=== PATIENT | male | born 1980 | race Caucasian/White ===

== ENCOUNTER 2017-10-17 11:44 | Inpatient (IN) | payer BC, OTHER ==
[2017-10-17] MEDS ORDERED: cefOXitin 2 GM in Premix Bag 1 BAG IV ONE (11:50)
[2017-10-17] MEDS ORDERED: metroNIDAZOLE/Normal Saline 500 MG in Premix Bag 1 BAG IV ONE (11:51)
[2017-10-17] MEDS ORDERED: Sodium Chloride 0.9% 10 ML Syringe FLUSH PRN (12:43)
[2017-10-17] MEDS ORDERED: Lidocaine 1%/Sod Bicarbonate in NS 8.4% 1 ML Syringe IV PRN (12:43)
[2017-10-17] MEDS ORDERED: Lactated Ringers 1,000 ML IV SCH (12:45)
--- NOTE | 2017-10-17 12:52 | PCM.PREANE ---
Preanesthetic Assessment - Procedure Proposed Procedure: Laparoscopic Appendectomy - Anesthesia/Transfusion/Family Hx Anesthesia History: Prior Anesthesia Without Reaction Family History of Anesthesia Reaction: No Transfusion History: No Prior Transfusion(s) Intubation History: Unknown - Review of Systems General: No Symptoms Pulmonary: No Symptoms Cardiovascular: No Symptoms Gastrointestinal: Other (Occasional Heart burn) Neurological: No Symptoms Other: Reports: Anxiety - Physical Assessment NPO Status Date: 10/17/17 NPO Status Time: 07:30 (2 bites toast) O2 Sat by Pulse Oximetry: 92 Respiratory Rate: 16 Vital Signs: Last Vital Signs Temp 37.3 C 10/17/17 12:10 Pulse 113 H 10/17/17 12:10 Resp 16 10/17/17 12:10 BP 158/115 H 10/17/17 12:10 Pulse Ox 92 L 10/17/17 12:10 Height: 1.88 m Weight: 133.356 kg ASA Class: 1E Mental Status: Alert & Oriented x3 Airway Class: Mallampati = 2 Dentition: Reports: Normal Dentition Thyro-Mental Finger Breadths: 3 Mouth Opening Finger Breadths: 3 ROM/Head Extension: Full Lungs: Clear to Auscultation, Normal Respiratory Effort Cardiovascular: Regular Rate, Regular Rhythm - Lab Values: Laboratory Last Values WBC 15.70 K/mm3 (4.23-9.07) H 10/17/17 12:15 RBC 4.97 M/mm3 (4.63-6.08) 10/17/17 12:15 Hgb 15.6 gm/L (13.7-17.5) 10/17/17 12:15 Hct 45.4 % (40.1-51.0) 10/17/17 12:15 MCV 91.3 fl (79.0-92.2) 10/17/17 12:15 MCH 31.4 pg (25.7-32.2) 10/17/17 12:15 MCHC 34.4 g/dl (32.2-35.5) 10/17/17 12:15 RDW Std Deviation 43.3 fL (35.1-43.9) 10/17/17 12:15 Plt Count 266 K/mm3 (163-337) 10/17/17 12:15 MPV 10.2 fl (9.4-12.3) 10/17/17 12:15 Neut % (Auto) 79.7 % (34.0-67.9) H 10/17/17 12:15 Lymph % (Auto) 9.3 % (21.8-53.1) L 10/17/17 12:15 [place] % (Auto) 10.2 % (5.3-12.2) 10/17/17 12:15 Eos % (Auto) 0.5 (0.8-7.0) L 10/17/17 12:15 Baso % (Auto) 0.1 % (0.1-1.2) 10/17/17 12:15 Neut # (Auto) 12.51 K/mm3 (1.78-5.38) H 10/17/17 12:15 Lymph # (Auto) 1.46 K/mm3 (1.32-3.57) 10/17/17 12:15 [place] # (Auto) 1.60 K/mm3 (0.30-0.82) H 10/17/17 12:15 Eos # (Auto) 0.08 K/mm3 (0.04-0.54) 10/17/17 12:15 Baso # (Auto) 0.02 K/mm3 (0.01-0.08) 10/17/17 12:15 Urine Color Yellow (Yellow) 10/17/17 11:49 Urine Appearance Clear (Clear) 10/17/17 11:49 Urine pH 6.0 (5.0-8.0) 10/17/17 11:49 Ur Specific [place] 1.010 (1.005-1.030) 10/17/17 11:49 Urine Protein Negative (Negative) 10/17/17 11:49 Urine Glucose (UA) Negative (Negative) 10/17/17 11:49 Urine Ketones Negative (Negative) 10/17/17 11:49 Urine Occult Blood Trace-intact (Negative) H 10/17/17 11:49 Urine Nitrite Negative (Negative) 10/17/17 11:49 Urine Bilirubin Negative (Negative) 10/17/17 11:49 Urine Urobilinogen 0.2 (0.2-1.0) 10/17/17 11:49 Ur Leukocyte Esterase Negative (Negative) 10/17/17 11:49 - Allergies Allergies/Adverse Reactions: Allergies Allergy/AdvReac Type Severity Reaction Status Date / Time No Known Drug Allergies Allergy Other Verified 10/17/17 12:44 - Acknowledgements Anesthesia Type Planned: General Anesthesia Pt an Appropriate Candidate for the Planned Anesthesia: Yes Alternatives and Risks of Anesthesia Discussed w Pt/Guardian: Yes Pt/Guardian Understands and Agrees with Anesthesia Plan: Yes PreAnesthesia Questionnaire HEENT History: Reports: Other (See Below) Other HEENT History: Lymph node cyst Cardiovascular History: Reports: None Respiratory History: Reports: None Other Respiratory History: smoker Gastrointestinal History: Reports: None Genitourinary History: Reports: None Musculoskeletal History: Reports: None Neurological History: Reports: None Psychiatric History: Reports: None Endocrine/Metabolic History: Reports: None Hematologic History: Reports: None Immunologic History: Reports: None Oncologic (Cancer) History: Reports: None Dermatologic History: Reports: None - Past Surgical History Head Surgeries/Procedures: Reports: None HEENT Surgical History: Reports: Other (See Below) Other HEENT Surgeries/Procedures: Removal of cyst on lymph node Cardiovascular Surgical History: Reports: None Respiratory Surgical History: Reports: None GI Surgical History: Reports: None Male Surgical History: Reports: Vasectomy Endocrine Surgical History: Reports: None Neurological Surgical History: Reports: None Musculoskeletal Surgical History: Reports: None Oncologic Surgical History: Reports: None Dermatological Surgical History: Reports: None - SUBSTANCE USE Smoking Status *Q: Former Smoker Tobacco Use Within Last Twelve Months: Cigarettes Other Tobacco Use Within Last Twelve Months: e cig Days Per Week of Alcohol Use: 7 Number of Drinks Per Day: 2 Total Drinks Per Week: 14 Recreational Drug Use History: No - CURRENT (IN HOUSE) MEDS Current Meds: Current Medications Metronidazole 500 mg/ Premix 100 mls @ 100 mls/hr IV ONETIME ONE Stop: 10/17/17 12:50 Lactated Ringer's (Ringers, Lactated) 1,000 mls @ 125 mls/hr IV ASDIRECTED [facility] Lidocaine/Sodium Bicarbonate (Buffered Lidocaine 1% In Ns 8.4%) 0.25 ml IV ONETIME PRN PRN Reason: Prior to IV Start Sodium Chloride (Saline Flush) 10 ml FLUSH ASDIRECTED PRN PRN Reason: Keep Vein Open Discontinued Medications Cefoxitin Sodium 2 gm/ Premix 50 mls @ 100 mls/hr IV ONETIME ONE Stop: 10/17/17 12:19
[2017-10-17] MEDS ORDERED: Famotidine 20 MG/2 ML SDV ONE (12:56)
[2017-10-17] MEDS ORDERED: Metoclopramide 10 MG/2 ML SDV ONE (13:13)
[2017-10-17] MEDS ORDERED: fentaNYL 100 MCG/2 ML SDV ONE (13:13)
[2017-10-17] MEDS ORDERED: Midazolam 1 MG/ML 2 ML SDV ONE (13:14)
[2017-10-17] MEDS ORDERED: Bupivacaine 0.5% 30 ML SDV ONE (13:34)
[2017-10-17] MEDS ORDERED: Lidocaine 1% 4 ML ONE (13:44)
[2017-10-17] MEDS ORDERED: fentaNYL 250 MCG/5 ML SDV ONE (13:44)
[2017-10-17] MEDS ORDERED: Propofol 200 MG/20 ML SDV ONE ×2 (13:44→15:25)
[2017-10-17] MEDS ORDERED: Succinylcholine 200 MG/10 ML MDV ONE (13:44)
[2017-10-17] MEDS ORDERED: Rocuronium 50 MG/5 ML Vial ONE (13:45)
[2017-10-17] MEDS ORDERED: Ondansetron 4 MG/2 ML SDV ONE (14:48)
[2017-10-17] MEDS ORDERED: Lactated Ringers 1,000 ML ONE (14:48)
[2017-10-17] MEDS ORDERED: Dexamethasone 4 MG/ML SDV ONE (14:48)
[2017-10-17] MEDS ORDERED: Midazolam 1 MG/ML 2 ML SDV IVPUSH PRN (14:56)
[2017-10-17] MEDS ORDERED: Haloperidol Lactate 5 MG/ML SDV IVPUSH ONE (14:56)
[2017-10-17] MEDS ORDERED: HYDROmorphone 0.5 MG/0.5 ML Syringe IVPUSH PRN (14:56)
[2017-10-17] MEDS ORDERED: fentaNYL 100 MCG/2 ML SDV IVPUSH PRN (14:56)
[2017-10-17] MEDS ORDERED: Neostigmine Methylsulfate 10 MG/10 ML MDV ONE (15:15)
[2017-10-17] MEDS ORDERED: Ketorolac 30 MG/ML SDV ONE (15:22)
[2017-10-17] MEDS ORDERED: HYDROmorphone 1 MG/ML Syringe ONE (15:24)
--- NOTE | 2017-10-17 15:27 | PCM.OPNOTE ---
- General Post-Op/Procedure Note Date of Surgery/Procedure: 10/17/17 Operative Procedure(s): lap appy Findings: ruptured appendix Pre Op Diagnosis: acute appendicitis Post-Op Diagnosis: Same Anesthesia Technique: General ET Tube Primary Surgeon: Wilbert Dickerson EBL in mLs: 3 Complications: None Condition: Good
[2017-10-17] MEDS ORDERED: Ondansetron 4 MG/2 ML SDV IVPUSH PRN (15:35)
--- NOTE | 2017-10-17 15:44 | PCM.POSTAN ---
POST ANESTHESIA ASSESSMENT - MENTAL STATUS Mental Status: Alert, Oriented - VITAL SIGNS Pulse Rate: 98 SaO2: 96 Resp Rate: 19 Blood Pressure: 165/101 Temperature: 37.0 C - RESPIRATORY Respiratory Status: Respiratory Rate WNL, Airway Patent, O2 Saturation Stable, Supplemental Oxygen - CARDIOVASCULAR CV Status: Pulse Rate WNL, Blood Pressure Stable - GASTROINTESTINAL GI Status: No Symptoms - PAIN Pain Score: 0 - POST OP HYDRATION Hydration Status: Adequate & Stable
[2017-10-17] MEDS: Acetaminophen/HYDROcodone 325-5 MG Tab PO PRN (17:59)
[2017-10-17] MEDS: metroNIDAZOLE/Normal Saline 500 MG in Premix Bag 1 BAG IV SCH (18:00)
[2017-10-17] MEDS: Ketorolac 30 MG/ML SDV IVPUSH PRN (18:22)
[2017-10-17] MEDS: HYDROmorphone 0.5 MG/0.5 ML Syringe IVPUSH PRN ×2 (18:57→21:53)
--- NOTE | 2017-10-17 19:22 | HP ---
DATE OF ADMISSION: 10/17/2017 HISTORY OF PRESENT ILLNESS: This is a 37-year-old who after dinner last night had pain all over the abdomen, vomited his dinner, and he had pain throughout the early hours of today and he began to notice pain in the right lower quadrant. He was seen by Dr. Jackson who noted a pulse of 112 and a temperature of 97 and noted tenderness in the right lower quadrant. A CT scan was done showing appendix in the retrocecal appendix position which was acute, which was read as dilated 13 mm with periappendiceal changes with an appendicolith. The patient was sent over here for care. PAST MEDICAL HISTORY: The patient's past medical history is that of good health. He does have some anxiety and was given some lorazepam because of claustrophobia and because of need for his CT scan. FAMILY HISTORY: Negative, he states. ALLERGIES: None. He did have little penicillin rash in the past. SOCIAL HISTORY: He denies any use of street drugs. He was a former smoker in the past, does use e-cigarettes. REVIEW OF SYSTEMS: No chest pain, shortness of breath, cough, hoarseness, wheezing, fainting, weakness, numbness, or convulsions. PHYSICAL EXAMINATION: GENERAL: Reveals alert, cooperative male. He is overweight with a BMI of 38.5. Pulse is 112, respirations 16, blood pressure 144/100. EYES: Sclerae are white. Extraocular muscle motion normal. Oral cavity: Healthy mucous membrane with mouth and tongue. NECK: Supple. No nodes. No thyromegaly. Trachea midline. LUNGS: Clear. No rales, rhonchi, fremitus, or dullness. HEART: Heart tones are sinus tachycardia. ABDOMEN: Soft, except for tenderness over McBurney point. EXTREMITIES: Upper and lower extremities: No angulation deformities. No sensorineural deficit. PSYCHIATRIC: Normal. He seems calm and cool after the Ativan. NEUROLOGIC: Cranial nerves III through XII intact. ASSESSMENT: Acute appendicitis. PLAN: For laparoscopic appendectomy, antibiotics. Risks and complications discussed with the patient. He understands and consents. MMODAL /[id number]
[2017-10-17] MEDS: cefOXitin 2 GM in Premix Bag 1 BAG IV SCH (21:41)
[2017-10-17] MEDS: Lactated Ringers 1,000 ML IV SCH (21:54)
[2017-10-17] MEDS: LORazepam 0.5 MG Tab PO PRN (21:55)
[2017-10-18] MEDS: HYDROmorphone 0.5 MG/0.5 ML Syringe IVPUSH PRN ×8 (00:21→21:23)
[2017-10-18] MEDS: metroNIDAZOLE/Normal Saline 500 MG in Premix Bag 1 BAG IV SCH ×5 (00:23→23:59)
[2017-10-18] MEDS: cefOXitin 2 GM in Premix Bag 1 BAG IV SCH ×5 (02:03→23:59)
[2017-10-18] MEDS: Ketorolac 30 MG/ML SDV IVPUSH PRN ×2 (04:04→10:06)
[2017-10-18] MEDS: Lactated Ringers 1,000 ML IV SCH (07:55)
--- NOTE | 2017-10-18 08:04 | OR ---
DATE OF OPERATION: 10/17/2017 SURGEON: Wilbert Dickerson MD PREOPERATIVE DIAGNOSIS: Acute appendicitis. POSTOPERATIVE DIAGNOSIS: Acute appendicitis. FINDINGS: Acute appendicitis with ruptured tip of the appendix in retrocecal position secondary to fecaliths. OPERATION PERFORMED: Laparoscopic appendectomy done under general anesthetic. ANESTHESIA: General anesthesia. DESCRIPTION OF PROCEDURE: The patient was taken to the operating room, placed in a supine position, connected to monitoring equipment, given antibiotics and general anesthetic, and intubated. Abdomen was then clipped and prepped with DuraPrep, draped off in a sterile fashion. Incision was made just below the umbilicus, carried down by sharp dissection to the fascia. This was incised. Abdominal cavity entered. Jhoana trocar inserted and secured with stay sutures. Pneumoperitoneum established. A 5 mm 30-degree camera was inserted showing inflammation in the right lower quadrant. A 5-mm trocar was placed in the right lower quadrant, one in right upper quadrant, and the cecum was rotated medially showing an inflamed appendix with ruptured tip and fecaliths in the pericolic gutter. The mesoappendix was then developed with a window using electrocautery at the base of the appendix, and Endo ligator was inserted and the appendix was from its attachments to the cecum. The loose areolar tissue attaching the appendix to the lateral pericolic gutter was then taken down with electrocautery and this allowed tenting up the appendix and dissecting down towards its tip using clips to secure the artery. Once the tip was identified, it was loose from the areolar tissue and the fecaliths were identified. These were removed from the abdominal cavity with a 10 mm sucker wand. Once the fecaliths were secured and out of the way and out of the abdomen, the appendix was placed in an Endo bag and removed. The pneumoperitoneum re-established and the area was then irrigated. There was no reaction in the pelvis as all along in the pericolic gutter up to the subhepatic space and this was irrigated. Excellent hemostasis and this completed the intraabdominal portion. The pneumoperitoneum and ports were removed and the fascia in the subumbilical port was closed with a running 0 Vicryl suture in a horizontal fashion. The skin of each port was closed with subcuticular 4-0 Dexon suture and Steri-Strips and sterile dressing placed, 0.5% Marcaine was infiltrated in the skin of each port. This completed the operation. The patient tolerated the procedure and estimated about 3 or 4 mL of blood loss. ESTIMATED BLOOD LOSS: MMODAL /[id number]
[2017-10-18] MEDS: LORazepam 0.5 MG Tab PO PRN ×2 (09:04→16:23)
[2017-10-18] MEDS ORDERED: Sodium Chloride 0.9% 10 ML Syringe FLUSH PRN (12:36)
--- NOTE | 2017-10-18 12:41 | PCM.SURGPN ---
- General Info Date of Service: 10/18/17 POD#: 1 - Review of Systems Pulmonary: Reports: No Symptoms Cardiovascular: Reports: Other (hypertension is concerned ) Gastrointestinal: Reports: Other (requesting diet) - Patient Data Vitals - Most Recent: Last Vital Signs Temp 98 F 10/18/17 07:22 Pulse 87 10/18/17 07:22 Resp 18 10/18/17 07:22 BP 149/97 H 10/18/17 07:22 Pulse Ox 94 L 10/18/17 07:22 Weight - Most Recent: 136.985 kg I&O - Last 24 Hours: Intake & Output 10/17/17 10/18/17 10/18/17 23:59 07:59 15:59 Intake Total 460 2712 540 Balance 460 2712 540 Lab Results Last 24 Hrs: Laboratory Results - last 24 hr 10/17/17 Range/Units 12:15 Manual Slide Review Abnormal smear Med Orders - Current: Current Medications Hydrocodone Bitart/Acetaminophen ([place] 325-5 Mg) 1 tab PO Q6H PRN PRN Reason: Pain Last Admin: 10/17/17 17:59 Dose: 1 tab Hydromorphone HCl (Dilaudid) 0.5 mg IVPUSH Q2H PRN PRN Reason: Pain Last Admin: 10/18/17 11:23 Dose: 0.5 mg Lactated Ringer's (Ringers, Lactated) 1,000 mls @ 100 mls/hr IV ASDIRECTED [facility] Last Admin: 10/18/17 07:55 Dose: 100 mls/hr Cefoxitin Sodium 2 gm/ Premix 50 mls @ 100 mls/hr IV Q6HR [facility] Last Admin: 10/18/17 11:29 Dose: 100 mls/hr Metronidazole 500 mg/ Premix 100 mls @ 100 mls/hr IV Q6H [facility] Last Admin: 10/18/17 10:00 Dose: 100 mls/hr Ketorolac Tromethamine (Toradol) 30 mg IVPUSH Q6H [facility] Lidocaine/Sodium Bicarbonate (Buffered Lidocaine 1% In Ns 8.4%) 0.25 ml IV ONETIME PRN PRN Reason: Prior to IV Start Lorazepam (Ativan) 0.5 mg PO TID PRN PRN Reason: Anxiety Last Admin: 10/18/17 09:04 Dose: 0.5 mg Ondansetron HCl (Zofran) 4 mg IVPUSH Q8H PRN PRN Reason: Nausea Sodium Chloride (Saline Flush) 10 ml FLUSH ASDIRECTED PRN PRN Reason: Keep Vein Open Sodium Chloride (Saline Flush) 10 ml FLUSH ASDIRECTED PRN PRN Reason: Keep Vein Open Discontinued Medications Bupivacaine HCl (Marcaine 0.5%) Confirm Administered Dose 30 ml .ROUTE .STK-MED ONE Stop: 10/17/17 13:35 Last Admin: 10/17/17 14:45 Dose: 30 ml Dexamethasone (Dexamethasone) Confirm Administered Dose 4 mg .ROUTE .STK-MED ONE Stop: 10/17/17 14:49 Famotidine (Pepcid) Confirm Administered Dose 20 mg .ROUTE .STK-MED ONE Stop: 10/17/17 12:57 Fentanyl (Sublimaze) Confirm Administered Dose 100 mcg .ROUTE .STK-MED ONE Stop: 10/17/17 13:14 Fentanyl (Sublimaze) Confirm Administered Dose 250 mcg .ROUTE .STK-MED ONE Stop: 10/17/17 13:45 Fentanyl (Sublimaze) 50 mcg IVPUSH Q5M PRN PRN Reason: Pain Stop: 10/17/17 18:00 Glycopyrrolate () Confirm Administered Dose 1 mg .ROUTE .STK-MED ONE Stop: 10/17/17 15:16 Haloperidol Lactate (Haldol) 1 mg IVPUSH ONETIME ONE Stop: 10/17/17 14:57 Last Admin: 10/17/17 18:49 Dose: Not Given Hydromorphone HCl (Dilaudid) 0.5 mg IVPUSH Q15M PRN PRN Reason: severe pain Stop: 10/17/17 14:57 Hydromorphone HCl (Dilaudid) Confirm Administered Dose 1 mg .ROUTE .STK-MED ONE Stop: 10/17/17 15:25 Cefoxitin Sodium 2 gm/ Premix 50 mls @ 100 mls/hr IV ONETIME ONE Stop: 10/17/17 12:19 Last Admin: 10/17/17 18:49 Dose: Not Given Metronidazole 500 mg/ Premix 100 mls @ 100 mls/hr IV ONETIME ONE Stop: 10/17/17 12:50 Last Admin: 10/17/17 18:49 Dose: Not Given Lactated Ringer's (Ringers, Lactated) 1,000 mls @ 125 mls/hr IV ASDIRECTED [facility] Lidocaine HCl (Xylocaine-Mpf 1%) Confirm Administered Dose 4 mls @ as directed .ROUTE .STK-MED ONE Stop: 10/17/17 13:45 Lactated Ringer's (Ringers, Lactated) Confirm Administered Dose 1,000 mls @ as directed .ROUTE .STK-MED ONE Stop: 10/17/17 14:49 Ketorolac Tromethamine (Toradol) Confirm Administered Dose 30 mg .ROUTE .STK- MED ONE Stop: 10/17/17 15:23 Ketorolac Tromethamine (Toradol) 30 mg IVPUSH Q6H PRN PRN Reason: Pain Last Admin: 10/18/17 10:06 Dose: 30 mg Metoclopramide HCl (Reglan) Confirm Administered Dose 10 mg .ROUTE .STK-MED ONE Stop: 10/17/17 13:14 Midazolam HCl (Versed 1 Mg/Ml) Confirm Administered Dose 2 mg .ROUTE .STK-MED ONE Stop: 10/17/17 13:15 Midazolam HCl (Versed 1 Mg/Ml) 2 mg IVPUSH ONETIME PRN PRN Reason: Sedation Stop: 10/17/17 18:00 Neostigmine Methylsulfate (Neostigmine Methylsulfate) Confirm Administered Dose 10 mg .ROUTE .STK-MED ONE Stop: 10/17/17 15:16 Ondansetron HCl (Zofran) Confirm Administered Dose 4 mg .ROUTE .STK-MED ONE Stop: 10/17/17 14:49 Propofol (Diprivan 20 Ml) Confirm Administered Dose 400 mg .ROUTE .STK-MED ONE Stop: 10/17/17 13:45 Propofol (Diprivan 20 Ml) Confirm Administered Dose 200 mg .ROUTE .STK-MED ONE Stop: 10/17/17 15:26 Rocuronium [place] (Zemuron) Confirm Administered Dose 50 mg .ROUTE .STK-MED ONE Stop: 10/17/17 13:46 Succinylcholine Chloride (Quelicin) Confirm Administered Dose 200 mg .ROUTE .STK -MED ONE Stop: 10/17/17 13:45 - Exam Wound/Incisions: Healing Well Lungs: Clear to Auscultation, Normal Respiratory Effort GI/Abdominal Exam: Normal Bowel Sounds, Soft, Non-Tender, No Organomegaly, No Distention, No Abnormal Bruit, No Mass, Pelvis Stable, Tender (tenderness rlq) - Problem List Review Problem List Initiated/Reviewed/Updated: Yes - My Orders Last 24 Hours: Active Orders 24 hr Category Date Time Status Patient Status [ADT] Stat ADT 10/17/17 15:27 Active Ambulate [RC] PER UNIT ROUTINE Care 10/17/17 15:29 Active Antiembolic Devices [RC] BID Care 10/17/17 15:29 Active Communication Order [RC] ROUTINE Care 10/17/17 14:55 Active Cooling Warming Measures [RC] ASDIRECTED Care 10/17/17 14:55 Active Notify Provider Consults [RC] ASDIRECTED Care 10/18/17 12:36 Ordered Notify Provider [RC] ASDIRECTED Care 10/17/17 14:55 Active Pulse Oximetry [RC] ASDIRECTED Care 10/17/17 14:55 Active Turn, Cough, Deep Breathe [RC] .PRN Care 10/17/17 15:29 Active Consult to Physician [CONS] Routine Cons 10/18/17 12:34 Ordered Clear Liquid Diet [DIET] Diet 10/17/17 Dinner Active Regular Diet [DIET] Diet 10/18/17 Dinner Ordered Acetaminophen/HYDROcodone [[place] 325-5 MG] Med 10/17/17 15:31 Active 1 tab PO Q6H PRN HYDROmorphone [Dilaudid] Med 10/17/17 15:29 Active 0.5 mg IVPUSH Q2H PRN Ketorolac [Toradol] Med 10/18/17 12:45 Ordered 30 mg IVPUSH Q6H LORazepam [Ativan] Med 10/17/17 20:44 Active 0.5 mg PO TID PRN Lactated Ringers [Ringers, Lactated] 1,000 ml Med 10/17/17 15:30 Active IV ASDIRECTED Lidocaine 1%/Sod Bicarbonate [Buffered Lidocaine 1% in Med 10/17/17 12:43 Active NS 8.4%] 0.25 ml IV ONETIME PRN Ondansetron [Zofran] Med 10/17/17 15:35 Active 4 mg IVPUSH Q8H PRN Sodium Chloride 0.9% [Saline Flush] Med 10/17/17 12:43 Active 10 ml FLUSH ASDIRECTED PRN Sodium Chloride 0.9% [Saline Flush] Med 10/18/17 12:36 Ordered 10 ml FLUSH ASDIRECTED PRN cefOXitin [Mefoxin in Dextrose,Iso-Osm 2 GM/50 ML] 2 gm Med 10/17/17 18:00 Active Premix Bag 1 bag IV Q6HR metroNIDAZOLE/Normal Saline [Flagyl 500 MG in NS 100 ML Med 10/17/17 17:00 Active ] 500 mg Premix Bag 1 bag IV Q6H Convert IV to Saline Lock [OM.PC] Routine Oth 10/18/17 12:36 Ordered Medication Administration Instruction [OM.PC] Routine Oth 10/17/17 12:43 Ordered Peripheral IV Insertion Adult [OM.PC] Routine Oth 10/17/17 12:43 Ordered SCD [Sequential Compression Device] [OM.PC] Routine Oth 10/17/17 15:29 Ordered Schedule Procedure [COMM] Urgent Oth 10/17/17 11:49 Ordered Resuscitation Status Routine Resus Stat 10/17/17 17:55 Ordered Medication Orders Hydrocodone Bitart/Acetaminophen ([place] 325-5 Mg) 1 tab PO Q6H PRN PRN Reason: Pain Last Admin: 10/17/17 17:59 Dose: 1 tab Hydromorphone HCl (Dilaudid) 0.5 mg IVPUSH Q2H PRN PRN Reason: Pain Last Admin: 10/18/17 11:23 Dose: 0.5 mg Admin: 10/18/17 08:54 Dose: 0.5 mg Admin: 10/18/17 06:52 Dose: 0.5 mg Admin: 10/18/17 04:26 Dose: 0.5 mg Admin: 10/18/17 00:21 Dose: 0.5 mg Admin: 10/17/17 21:53 Dose: 0.5 mg Admin: 10/17/17 18:57 Dose: 0.5 mg Lactated Ringer's (Ringers, Lactated) 1,000 mls @ 100 mls/hr IV ASDIRECTED [facility] Last Admin: 10/18/17 07:55 Dose: 100 mls/hr Infusion: 10/18/17 07:54 Dose: 100 mls/hr Admin: 10/17/17 21:54 Dose: 100 mls/hr Cefoxitin Sodium 2 gm/ Premix 50 mls @ 100 mls/hr IV Q6HR [facility] Last Admin: 10/18/17 11:29 Dose: 100 mls/hr Infusion: 10/18/17 06:58 Dose: 100 mls/hr Admin: 10/18/17 06:28 Dose: 100 mls/hr Infusion: 10/18/17 02:33 Dose: 100 mls/hr Admin: 10/18/17 02:03 Dose: 100 mls/hr Infusion: 10/17/17 22:11 Dose: 100 mls/hr Admin: 10/17/17 21:41 Dose: 100 mls/hr Metronidazole 500 mg/ Premix 100 mls @ 100 mls/hr IV Q6H [facility] Last Admin: 10/18/17 10:00 Dose: 100 mls/hr Infusion: 10/18/17 05:03 Dose: 100 mls/hr Admin: 10/18/17 04:03 Dose: 100 mls/hr Infusion: 10/18/17 01:23 Dose: 100 mls/hr Admin: 10/18/17 00:23 Dose: 100 mls/hr Infusion: 10/17/17 19:00 Dose: 100 mls/hr Admin: 10/17/17 18:00 Dose: 100 mls/hr Ketorolac Tromethamine (Toradol) 30 mg IVPUSH Q6H [facility] Lidocaine/Sodium Bicarbonate (Buffered Lidocaine 1% In Ns 8.4%) 0.25 ml IV ONETIME PRN PRN Reason: Prior to IV Start Lorazepam (Ativan) 0.5 mg PO TID PRN PRN Reason: Anxiety Last Admin: 10/18/17 09:04 Dose: 0.5 mg Admin: 10/17/17 21:55 Dose: 0.5 mg Ondansetron HCl (Zofran) 4 mg IVPUSH Q8H PRN PRN Reason: Nausea Sodium Chloride (Saline Flush) 10 ml FLUSH ASDIRECTED PRN PRN Reason: Keep Vein Open Sodium Chloride (Saline Flush) 10 ml FLUSH ASDIRECTED PRN PRN Reason: Keep Vein Open - Plan Plan (Free Text/Narrative):: pain a problem for the patient family concerned about hs high blood pressure and wishes this addressed diet wishes the diet advanced \ ass improvaing plan advance diet stop LR, consult for hypertenision with the hospitalist and give toradol maykel q six hour schedule JACKI
[2017-10-18] MEDS ORDERED: Ketorolac 30 MG/ML SDV IVPUSH SCH (12:45)
[2017-10-18] MEDS ORDERED: hydrALAZINE 20 MG/ML SDV IVPUSH PRN (13:03)
--- NOTE | 2017-10-18 13:14 | PCM.CONS ---
H&P History of Present Illness - General Date of Service: 10/18/17 Admit Problem/Dx: Admission Diagnosis/Problem Admission Diagnosis/Problem Appendicitis Source of Information: Patient History Limitations: Reports: No Limitations - History of Present Illness Initial Comments - Free Text/Narative: This pt is 37 y/o c male with no PMHX, presented to ER with c/o abd pain was found to have appendicitis and went to OR for laproscopic Appendectomy. Pt had small perforation in tip of appendix but it was resected By Dr Ledbetter. Pt been having a lot of abd pain but passed flatus and start on clears today. We been consult for elevated BP since admit, pt denies ny Hx of HTN, only his broher had a HTN. pt is not complaint with his diet and his overweight. Right Abdomen Pain Score (Numeric/FACES): 8 - Related Data Allergies/Adverse Reactions: Allergies Allergy/AdvReac Type Severity Reaction Status Date / Time No Known Drug Allergies Allergy Other Verified 10/17/17 12:44 Past Medical History HEENT History: Reports: Other (See Below) Other HEENT History: Lymph node cyst Cardiovascular History: Reports: None Respiratory History: Reports: None Other Respiratory History: smoker Gastrointestinal History: Reports: None Genitourinary History: Reports: None Musculoskeletal History: Reports: None Neurological History: Reports: None Psychiatric History: Reports: None Endocrine/Metabolic History: Reports: None Hematologic History: Reports: None Immunologic History: Reports: None Oncologic (Cancer) History: Reports: None Dermatologic History: Reports: None - Past Surgical History Head Surgeries/Procedures: Reports: None HEENT Surgical History: Reports: Other (See Below) Other HEENT Surgeries/Procedures: Removal of cyst on lymph node Cardiovascular Surgical History: Reports: None Respiratory Surgical History: Reports: None GI Surgical History: Reports: None Male Surgical History: Reports: Vasectomy Endocrine Surgical History: Reports: None Neurological Surgical History: Reports: None Musculoskeletal Surgical History: Reports: None Oncologic Surgical History: Reports: None Dermatological Surgical History: Reports: None Social & Family History - Tobacco Use Smoking Status *Q: Former Smoker Years of Tobacco use: 15 Packs/Tins Daily: 1.5 Used Tobacco, but Quit: Yes Month Tobacco Last Used: 11/2011 Second Hand Smoke Exposure: No - Caffeine Use Caffeine Use: Reports: Coffee, Soda Other Caffeine Use: couple/day - Alcohol Use Days Per Week of Alcohol Use: 7 Number of Drinks Per Day: 3 Total Drinks Per Week: 21 - Recreational Drug Use Recreational Drug Use: No Drug Use in Last 12 Months: No H&P Review of Systems - Review of Systems: Review Of Systems: See Below General: Reports: No Symptoms HEENT: Reports: No Symptoms Pulmonary: Reports: No Symptoms Cardiovascular: Reports: No Symptoms Gastrointestinal: Reports: No Symptoms Genitourinary: Reports: No Symptoms Musculoskeletal: Reports: No Symptoms Skin: Reports: No Symptoms Psychiatric: Reports: No Symptoms Neurological: Reports: No Symptoms Hematologic/Lymphatic: Reports: No Symptoms Immunologic: Reports: No Symptoms Exam - Exam Exam: See Below - Vital Signs Vital Signs: Last Vital Signs Temp 100.0 F 10/18/17 12:27 Pulse 107 H 10/18/17 12:28 Resp 16 10/18/17 12:27 BP 161/108 H 10/18/17 12:28 Pulse Ox 94 L 10/18/17 12:28 Weight: 302 lb - Exam General: Alert, Oriented, 4 HEENT: PERRLA, Hearing Intact, Mucosa Moist & [place], Nares Patent, Normal Nasal Septum, Posterior Pharynx Clear, Conjunctiva Clear, EOMI, EACs Clear, TMs Clear Neck: Supple, Trachea Midline, 2 Lungs: Clear to Auscultation, Normal Respiratory Effort Cardiovascular: Regular Rate, Regular Rhythm GI/Abdominal Exam: Normal Bowel Sounds, Soft, No Organomegaly, No Distention, No Abnormal Bruit, No Mass, Pelvis Stable, Tender (Male) Exam: Deferred Rectal (Males) Exam: Deferred Back Exam: Normal Inspection, Full Range of Motion, NT Extremities: Normal Inspection, Normal Range of Motion, Non-Tender, No Pedal Edema, Normal Capillary Refill Skin: Warm, Dry, Intact Neurological: Cranial Nerves Intact, Reflexes Equal Bilateral Neuro Extensive - Mental Status: Alert, Oriented x3, Normal Mood/Affect, Normal Cognition Neuro Extensive - Motor, Sensory, Reflexes: CN II-XII Intact, Normal Gait, Normal Reflexes Psychiatric: Alert, Normal Affect, Normal Mood - Patient Data Result Diagrams: 10/17/17 12:15 Consult PN Assessment/Plan POD#: 1 Procedures: Procedures CHEST X-RAY 2VW FRONTAL&LATL (08/05/15) COMPLETE CBC W/AUTO DIFF WBC (08/05/15) COMPREHEN METABOLIC PANEL (08/05/15) HIV-1/HIV-2 1 RESULT ANTBDY (08/05/15) RBC SED RATE AUTOMATED (08/05/15) Problem List Initiated/Reviewed/Updated: Yes My Orders Last 24 Hours: My Active Orders 10/18/17 13:03 hydrALAZINE [Apresoline] 10 mg IVPUSH Q4H PRN 10/18/17 13:15 Hydrochlorothiazide 25 mg PO DAILY Lisinopril [Prinivil] 10 mg PO DAILY Plan: ELEVATED BP 2/2 PAIN CONTROL VS UNDERLYING ESS HTN (WHICH MOST LIKELY THE REASON ) POD #1 LAP APPENDECTOMY PLAN: -ITS VERY REASONABLE TO START PT ON HTN med LIKE ACEI/HCTZ AND BE REEVAL OPT BASIS WITH HIS PCP IN 1 WEEK TO 10 DAYS -IN MEAN TIME WILL ADD HYDRALYZIN PRN IP -PT GOT EDUCATION RE LOW SALT DIET -WILL F/U ON HIS BP ON AM Thank you for allowing us to see your patient. Requesting Provider: barrett Date Consult Requested: 10/18/17 Reason for Consult: HTN Patient History Reviewed: Yes Admission H&P Reviewed: Yes Notified Requestor: Yes
[2017-10-18] MEDS: Lisinopril 10 MG Tab PO SCH (13:15)
[2017-10-18] MEDS: Hydrochlorothiazide 25 MG Tab PO SCH (13:15)
[2017-10-18] MEDS: Acetaminophen/HYDROcodone 325-5 MG Tab PO PRN (14:50)
[2017-10-18] MEDS: Ketorolac 30 MG/ML SDV IVPUSH SCH ×2 (16:27→21:22)
[2017-10-18] MEDS: Acetaminophen/oxyCODONE 325-5 MG Tab PO PRN (17:27)
[2017-10-18] MEDS ORDERED: Metoprolol Tartrate 5 MG/5 ML SDV IVPUSH PRN (18:45)
--- NOTE | 2017-10-18 19:12 | PCM.SURGPN ---
- General Info Date of Service: 10/18/17 POD#: 1 Functional Status: Reports: Pain Controlled - Review of Systems General: Reports: Other (tachycardia of 131) - Patient Data Vitals - Most Recent: Last Vital Signs Temp 100.0 F 10/18/17 12:27 Pulse 131 H 10/18/17 18:15 Resp 20 10/18/17 18:15 BP 130/99 H 10/18/17 18:15 Pulse Ox 90 L 10/18/17 18:15 Weight - Most Recent: 136.985 kg I&O - Last 24 Hours: Intake & Output 10/18/17 10/18/17 10/18/17 07:59 15:59 23:59 Intake Total 5592 540 3940 Balance 0932 540 3940 Med Orders - Current: Current Medications Hydrocodone Bitart/Acetaminophen ([place] 325-5 Mg) 1 tab PO Q6H PRN PRN Reason: Pain Last Admin: 10/18/17 14:50 Dose: 1 tab Hydralazine HCl (Apresoline) 10 mg IVPUSH Q4H PRN PRN Reason: Hypertension Last Admin: 10/18/17 15:00 Dose: 10 mg Hydrochlorothiazide (Hydrochlorothiazide) 25 mg PO DAILY [facility] Last Admin: 10/18/17 13:15 Dose: 25 mg Hydromorphone HCl (Dilaudid) 0.5 mg IVPUSH Q2H PRN PRN Reason: Pain Last Admin: 10/18/17 14:51 Dose: 0.5 mg Cefoxitin Sodium 2 gm/ Premix 50 mls @ 100 mls/hr IV Q6HR [facility] Last Admin: 10/18/17 17:42 Dose: 100 mls/hr Metronidazole 500 mg/ Premix 100 mls @ 100 mls/hr IV Q6H [facility] Last Admin: 10/18/17 16:24 Dose: 100 mls/hr Ketorolac Tromethamine (Toradol) 30 mg IVPUSH Q6H [facility] Last Admin: 10/18/17 16:27 Dose: 30 mg Lidocaine/Sodium Bicarbonate (Buffered Lidocaine 1% In Ns 8.4%) 0.25 ml IV ONETIME PRN PRN Reason: Prior to IV Start Lisinopril (Prinivil) 10 mg PO DAILY [facility] Last Admin: 10/18/17 13:15 Dose: 10 mg Lorazepam (Ativan) 0.5 mg PO TID PRN PRN Reason: Anxiety Last Admin: 10/18/17 16:23 Dose: 0.5 mg Metoprolol Tartrate (Lopressor) 5 mg IVPUSH Q4H PRN PRN Reason: Tachycardia Ondansetron HCl (Zofran) 4 mg IVPUSH Q8H PRN PRN Reason: Nausea Oxycodone/Acetaminophen (Percocet 325-5 Mg) 1 - 2 tab PO Q6H PRN PRN Reason: Abdominal Pain Last Admin: 10/18/17 17:27 Dose: 2 tab Sodium Chloride (Saline Flush) 10 ml FLUSH ASDIRECTED PRN PRN Reason: Keep Vein Open Sodium Chloride (Saline Flush) 10 ml FLUSH ASDIRECTED PRN PRN Reason: Keep Vein Open Discontinued Medications Bupivacaine HCl (Marcaine 0.5%) Confirm Administered Dose 30 ml .ROUTE .STK-MED ONE Stop: 10/17/17 13:35 Last Admin: 10/17/17 14:45 Dose: 30 ml Dexamethasone (Dexamethasone) Confirm Administered Dose 4 mg .ROUTE .STK-MED ONE Stop: 10/17/17 14:49 Famotidine (Pepcid) Confirm Administered Dose 20 mg .ROUTE .STK-MED ONE Stop: 10/17/17 12:57 Fentanyl (Sublimaze) Confirm Administered Dose 100 mcg .ROUTE .STK-MED ONE Stop: 10/17/17 13:14 Fentanyl (Sublimaze) Confirm Administered Dose 250 mcg .ROUTE .STK-MED ONE Stop: 10/17/17 13:45 Fentanyl (Sublimaze) 50 mcg IVPUSH Q5M PRN PRN Reason: Pain Stop: 10/17/17 18:00 Glycopyrrolate () Confirm Administered Dose 1 mg .ROUTE .STK-MED ONE Stop: 10/17/17 15:16 Haloperidol Lactate (Haldol) 1 mg IVPUSH ONETIME ONE Stop: 10/17/17 14:57 Last Admin: 10/17/17 18:49 Dose: Not Given Hydromorphone HCl (Dilaudid) 0.5 mg IVPUSH Q15M PRN PRN Reason: severe pain Stop: 10/17/17 14:57 Hydromorphone HCl (Dilaudid) Confirm Administered Dose 1 mg .ROUTE .STK-MED ONE Stop: 10/17/17 15:25 Cefoxitin Sodium 2 gm/ Premix 50 mls @ 100 mls/hr IV ONETIME ONE Stop: 10/17/17 12:19 Last Admin: 10/17/17 18:49 Dose: Not Given Metronidazole 500 mg/ Premix 100 mls @ 100 mls/hr IV ONETIME ONE Stop: 10/17/17 12:50 Last Admin: 10/17/17 18:49 Dose: Not Given Lactated Ringer's (Ringers, Lactated) 1,000 mls @ 125 mls/hr IV ASDIRECTED [facility] Lidocaine HCl (Xylocaine-Mpf 1%) Confirm Administered Dose 4 mls @ as directed .ROUTE .STK-MED ONE Stop: 10/17/17 13:45 Lactated Ringer's (Ringers, Lactated) Confirm Administered Dose 1,000 mls @ as directed .ROUTE .STK-MED ONE Stop: 10/17/17 14:49 Lactated Ringer's (Ringers, Lactated) 1,000 mls @ 100 mls/hr IV ASDIRECTED [facility] Last Admin: 10/18/17 07:55 Dose: 100 mls/hr Ketorolac Tromethamine (Toradol) Confirm Administered Dose 30 mg .ROUTE .STK- MED ONE Stop: 10/17/17 15:23 Ketorolac Tromethamine (Toradol) 30 mg IVPUSH Q6H PRN PRN Reason: Pain Last Admin: 10/18/17 10:06 Dose: 30 mg Ketorolac Tromethamine (Toradol) 30 mg IVPUSH Q6H [facility] Last Admin: 10/18/17 16:23 Dose: Not Given Metoclopramide HCl (Reglan) Confirm Administered Dose 10 mg .ROUTE .STK-MED ONE Stop: 10/17/17 13:14 Midazolam HCl (Versed 1 Mg/Ml) Confirm Administered Dose 2 mg .ROUTE .STK-MED ONE Stop: 10/17/17 13:15 Midazolam HCl (Versed 1 Mg/Ml) 2 mg IVPUSH ONETIME PRN PRN Reason: Sedation Stop: 10/17/17 18:00 Neostigmine Methylsulfate (Neostigmine Methylsulfate) Confirm Administered Dose 10 mg .ROUTE .STK-MED ONE Stop: 10/17/17 15:16 Ondansetron HCl (Zofran) Confirm Administered Dose 4 mg .ROUTE .STK-MED ONE Stop: 10/17/17 14:49 Propofol (Diprivan 20 Ml) Confirm Administered Dose 400 mg .ROUTE .STK-MED ONE Stop: 10/17/17 13:45 Propofol (Diprivan 20 Ml) Confirm Administered Dose 200 mg .ROUTE .STK-MED ONE Stop: 10/17/17 15:26 Rocuronium Reeder (Zemuron) Confirm Administered Dose 50 mg .ROUTE .STK-MED ONE Stop: 10/17/17 13:46 Succinylcholine Chloride (Quelicin) Confirm Administered Dose 200 mg .ROUTE .STK -MED ONE Stop: 10/17/17 13:45 - Exam Lungs: Clear to Auscultation, Normal Respiratory Effort GI/Abdominal Exam: Normal Bowel Sounds, Soft, Non-Tender, No Organomegaly, No Distention, No Abnormal Bruit, No Mass, Pelvis Stable, Other (tenderness in the RLQ unchanged mabey better rest of the abdomen is soft and surgical site are healing without problem. minimal guarding in the RLQ consitant with recent surgery ) - Problem List Review Problem List Initiated/Reviewed/Updated: Yes - My Orders Last 24 Hours: Active Orders 24 hr Category Date Time Status EKG 12 Lead [EKG Documentation Completion] [RC] STAT Care 10/18/17 19:07 Active Notify Provider Consults [RC] ASDIRECTED Care 10/18/17 12:36 Active Consult to Physician [CONS] Routine Cons 10/18/17 12:34 Active Regular Diet [DIET] Diet 10/18/17 Dinner Active CBC WITH AUTO DIFF [HEME] Routine Lab 10/19/17 07:00 Ordered Acetaminophen/oxyCODONE [Percocet 325-5 MG] Med 10/18/17 16:33 Active 1 - 2 tab PO Q6H PRN Hydrochlorothiazide Med 10/18/17 13:15 Active 25 mg PO DAILY Ketorolac [Toradol] Med 10/18/17 16:00 Active 30 mg IVPUSH Q6H LORazepam [Ativan] Med 10/17/17 20:44 Active 0.5 mg PO TID PRN Lisinopril [Prinivil] Med 10/18/17 13:15 Active 10 mg PO DAILY Metoprolol Tartrate [Lopressor] Med 10/18/17 18:45 Active 5 mg IVPUSH Q4H PRN Sodium Chloride 0.9% [Saline Flush] Med 10/18/17 12:36 Active 10 ml FLUSH ASDIRECTED PRN hydrALAZINE [Apresoline] Med 10/18/17 13:03 Active 10 mg IVPUSH Q4H PRN Convert IV to Saline Lock [OM.PC] Routine Oth 10/18/17 12:36 Ordered Medication Orders Hydrocodone Bitart/Acetaminophen ([place] 325-5 Mg) 1 tab PO Q6H PRN PRN Reason: Pain Last Admin: 10/18/17 14:50 Dose: 1 tab Admin: 10/17/17 17:59 Dose: 1 tab Hydralazine HCl (Apresoline) 10 mg IVPUSH Q4H PRN PRN Reason: Hypertension Last Admin: 10/18/17 15:00 Dose: 10 mg Hydrochlorothiazide (Hydrochlorothiazide) 25 mg PO DAILY [facility] Last Admin: 10/18/17 13:15 Dose: 25 mg Hydromorphone HCl (Dilaudid) 0.5 mg IVPUSH Q2H PRN PRN Reason: Pain Last Admin: 10/18/17 14:51 Dose: 0.5 mg Admin: 10/18/17 13:11 Dose: 0.5 mg Admin: 10/18/17 11:23 Dose: 0.5 mg Admin: 10/18/17 08:54 Dose: 0.5 mg Admin: 10/18/17 06:52 Dose: 0.5 mg Admin: 10/18/17 04:26 Dose: 0.5 mg Admin: 10/18/17 00:21 Dose: 0.5 mg Admin: 10/17/17 21:53 Dose: 0.5 mg Admin: 10/17/17 18:57 Dose: 0.5 mg Cefoxitin Sodium 2 gm/ Premix 50 mls @ 100 mls/hr IV Q6HR [facility] Last Admin: 10/18/17 17:42 Dose: 100 mls/hr Infusion: 10/18/17 11:59 Dose: 100 mls/hr Admin: 10/18/17 11:29 Dose: 100 mls/hr Infusion: 10/18/17 06:58 Dose: 100 mls/hr Admin: 10/18/17 06:28 Dose: 100 mls/hr Infusion: 10/18/17 02:33 Dose: 100 mls/hr Admin: 10/18/17 02:03 Dose: 100 mls/hr Infusion: 10/17/17 22:11 Dose: 100 mls/hr Admin: 10/17/17 21:41 Dose: 100 mls/hr Metronidazole 500 mg/ Premix 100 mls @ 100 mls/hr IV Q6H [facility] Last Admin: 10/18/17 16:24 Dose: 100 mls/hr Infusion: 10/18/17 11:00 Dose: 100 mls/hr Admin: 10/18/17 10:00 Dose: 100 mls/hr Infusion: 10/18/17 05:03 Dose: 100 mls/hr Admin: 10/18/17 04:03 Dose: 100 mls/hr Infusion: 10/18/17 01:23 Dose: 100 mls/hr Admin: 10/18/17 00:23 Dose: 100 mls/hr Infusion: 10/17/17 19:00 Dose: 100 mls/hr Admin: 10/17/17 18:00 Dose: 100 mls/hr Ketorolac Tromethamine (Toradol) 30 mg IVPUSH Q6H [facility] Last Admin: 10/18/17 16:27 Dose: 30 mg Lidocaine/Sodium Bicarbonate (Buffered Lidocaine 1% In Ns 8.4%) 0.25 ml IV ONETIME PRN PRN Reason: Prior to IV Start Lisinopril (Prinivil) 10 mg PO DAILY [facility] Last Admin: 10/18/17 13:15 Dose: 10 mg Lorazepam (Ativan) 0.5 mg PO TID PRN PRN Reason: Anxiety Last Admin: 10/18/17 16:23 Dose: 0.5 mg Admin: 10/18/17 09:04 Dose: 0.5 mg Admin: 10/17/17 21:55 Dose: 0.5 mg Metoprolol Tartrate (Lopressor) 5 mg IVPUSH Q4H PRN PRN Reason: Tachycardia Ondansetron HCl (Zofran) 4 mg IVPUSH Q8H PRN PRN Reason: Nausea Oxycodone/Acetaminophen (Percocet 325-5 Mg) 1 - 2 tab PO Q6H PRN PRN Reason: Abdominal Pain Last Admin: 10/18/17 17:27 Dose: 2 tab Sodium Chloride (Saline Flush) 10 ml FLUSH ASDIRECTED PRN PRN Reason: Keep Vein Open Sodium Chloride (Saline Flush) 10 ml FLUSH ASDIRECTED PRN PRN Reason: Keep Vein Open - Plan Plan (Free Text/Narrative):: tachycardia cause not clear pt recently placed on hydralazine plan ask the hospitalist to consult tonight concerning this problem will stat sub Q heparin. JACKI
[2017-10-18] MEDS ORDERED: Potassium Chloride 20 MEQ Tab.ER PO ONE (19:48)
[2017-10-18] MEDS ORDERED: Iopamidol 755 Mg/ML 100 ML Bottle IVPUSH ONE (20:26)
[2017-10-18] MEDS ORDERED: Sodium Chloride 0.9% 100 ML IV SCH (20:30)
[2017-10-18] MEDS: Potassium Chloride 10 MEQ in Premix Bag 1 BAG IV SCH ×2 (21:20→22:54)
[2017-10-18] MEDS: Heparin Sodium 5,000 Units/ML Vial SUBCUT SCH (21:21)
[2017-10-18] MEDS ORDERED: Metoprolol Tartrate 50 MG Tab PO ONE (21:57)
[2017-10-18] MEDS ORDERED: ALPRAZolam 1 MG Tab PO ONE (21:57)
[2017-10-19] MEDS: HYDROmorphone 0.5 MG/0.5 ML Syringe IVPUSH PRN (02:29)
[2017-10-19] MEDS: Acetaminophen/oxyCODONE 325-5 MG Tab PO PRN ×3 (05:06→10:53)
[2017-10-19] MEDS: Ketorolac 30 MG/ML SDV IVPUSH SCH ×2 (05:07→09:51)
[2017-10-19] MEDS: cefOXitin 2 GM in Premix Bag 1 BAG IV SCH ×2 (05:10→11:42)
[2017-10-19] MEDS: metroNIDAZOLE/Normal Saline 500 MG in Premix Bag 1 BAG IV SCH ×2 (05:10→10:54)
[2017-10-19] MEDS: LORazepam 0.5 MG Tab PO PRN (05:26)
--- NOTE | 2017-10-19 08:51 | CT ---
CT chest Technique: Multiple axial sections through the chest were obtained. Intravenous contrast was utilized. Study performed as a pulmonary angiogram protocol. Comparison: No prior chest CT, prior chest x-ray of 08/05/15. Findings: Pulmonary arteries are not optimally opacified. No findings of pulmonary embolism within the main pulmonary artery or within the proximal segmental arteries. Subsegmental pulmonary emboli could easily be missed. Mediastinum and hilar regions show no adenopathy or mass. No pericardial thickening is seen. Small amount of free air seen within the abdomen. Liver shows fatty infiltration. Atelectasis seen posteriorly within both lung bases, worse on the right side. Lungs otherwise are clear. Impression: 1. Small amount of free air within the abdomen most likely representing change from recent surgery. 2. Mild bibasilar atelectasis worse on the right side. 3. Suboptimal opacification of the pulmonary arteries. No larger pulmonary embolism is seen. Smaller subsegmental pulmonary emboli could easily be missed. Diagnostic code #3 Agree with preliminary report issued by [facility] ([facility] preliminary report dictated on 10/18/17, 10:11 PM Central Time)
--- NOTE | 2017-10-19 08:51 | CR ---
Abdomen: Supine and upright views of the abdomen were obtained. Comparison: No prior study. Surgical clips are seen within the right abdomen. Contrast and stool are noted within the colon from prior contrast exam. Several air-fluid levels are seen believed to be within normal limits. No abnormal calcifications or soft tissue abnormality is seen. Bony structures are unremarkable. Impression: 1. Incidental findings. Diagnostic code #2
[2017-10-19] MEDS: Heparin Sodium 5,000 Units/ML Vial SUBCUT SCH (08:52)
[2017-10-19] MEDS: Hydrochlorothiazide 25 MG Tab PO SCH (08:54)
[2017-10-19] MEDS: Lisinopril 10 MG Tab PO SCH (08:54)
[2017-10-19] MEDS ORDERED: Magnesium Oxide 400 MG Tab PO ONE (10:11)
--- NOTE | 2017-10-19 10:20 | PCM.CONSN ---
- General Info Date of Service: 10/19/17 Admission Dx/Problem (Free Text): Admission Diagnosis/Problem Admission Diagnosis/Problem Appendicitis Patient with abdominal pain all morning per nursing, continues to demand pain medications. B/P is stable and improved. Functional Status: Reports: Pain Controlled, Tolerating Diet, Ambulating, Urinating - Review of Systems General: Reports: No Symptoms. Denies: Fever HEENT: Reports: No Symptoms Pulmonary: Reports: No Symptoms Cardiovascular: Reports: No Symptoms. Denies: Chest Pain, Palpitations, Lightheadedness Gastrointestinal: Reports: Abdominal Pain (surgical/s/p lap appy) Genitourinary: Reports: No Symptoms Musculoskeletal: Reports: No Symptoms Skin: Reports: No Symptoms Neurological: Reports: No Symptoms Psychiatric: Reports: No Symptoms, Anxiety - Patient Data Vitals - Most Recent: Last Vital Signs Temp 97.3 F 10/19/17 05:04 Pulse 84 10/19/17 05:04 Resp 18 10/19/17 05:04 BP 132/85 10/19/17 05:04 Pulse Ox 97 10/19/17 05:04 Weight - Most Recent: 302 lb I&O - Last 24 Hours: Intake & Output 10/18/17 10/19/17 10/19/17 22:59 06:59 14:59 Intake Total 3940 2750 Balance 3940 2750 Lab Results Last 24 Hours: Laboratory Results - last 24 hr 10/18/17 10/18/17 10/18/17 Range/Units 19:18 19:18 19:18 WBC 10.01 H (4.23-9.07) K/mm3 RBC 4.50 L (4.63-6.08) M/mm3 Hgb 14.3 (13.7-17.5) gm/L Hct 42.8 (40.1-51.0) % MCV 95.1 H (79.0-92.2) fl MCH 31.8 (25.7-32.2) pg MCHC 33.4 (32.2-35.5) g/dl RDW Std Deviation 45.5 H (35.1-43.9) fL Plt Count 198 (163-337) K/mm3 MPV 10.3 (9.4-12.3) fl Neut % (Auto) 81.0 H (34.0-67.9) % Lymph % (Auto) 11.2 L (21.8-53.1) % [place] % (Auto) 6.3 (5.3-12.2) % Eos % (Auto) 1.0 (0.8-7.0) Baso % (Auto) 0.2 (0.1-1.2) % Neut # (Auto) 8.11 H (1.78-5.38) K/mm3 Lymph # (Auto) 1.12 L (1.32-3.57) K/mm3 [place] # (Auto) 0.63 (0.30-0.82) K/mm3 Eos # (Auto) 0.10 (0.04-0.54) K/mm3 Baso # (Auto) 0.02 (0.01-0.08) K/mm3 Manual Slide Review Not Reportable Sodium 137 (136-145) mEq/L Potassium 3.1 L (3.5-5.1) mEq/L Chloride 101 (98-107) mEq/L Carbon Dioxide 26 (21-32) mEq/L Anion Gap 13.1 (5-15) BUN (7-18) mg/dL Creatinine (0.7-1.3) mg/dL Est Cr Clr Drug Dosing mL/min Estimated GFR (MDRD) (>60) mL/min BUN/Creatinine Ratio (14-18) Glucose (74-106) mg/dL Lactic Acid 0.8 (0.4-2.0) mmol/L Calcium (8.5-10.1) mg/dL Magnesium (1.8-2.4) mg/dl 10/18/17 10/19/17 10/19/17 Range/Units 19:18 06:10 06:10 WBC 9.42 H (4.23-9.07) K/mm3 RBC 4.17 L (4.63-6.08) M/mm3 Hgb 13.3 L (13.7-17.5) gm/L Hct 40.2 (40.1-51.0) % MCV 96.4 H (79.0-92.2) fl MCH 31.9 (25.7-32.2) pg MCHC 33.1 (32.2-35.5) g/dl RDW Std Deviation 47.0 H (35.1-43.9) fL Plt Count 212 (163-337) K/mm3 MPV 10.7 (9.4-12.3) fl Neut % (Auto) 73.7 H (34.0-67.9) % Lymph % (Auto) 11.5 L (21.8-53.1) % [place] % (Auto) 11.5 (5.3-12.2) % Eos % (Auto) 2.8 (0.8-7.0) Baso % (Auto) 0.3 (0.1-1.2) % Neut # (Auto) 6.95 H (1.78-5.38) K/mm3 Lymph # (Auto) 1.08 L (1.32-3.57) K/mm3 [place] # (Auto) 1.08 H (0.30-0.82) K/mm3 Eos # (Auto) 0.26 (0.04-0.54) K/mm3 Baso # (Auto) 0.03 (0.01-0.08) K/mm3 Manual Slide Review Sodium 138 137 (136-145) mEq/L Potassium 3.2 L 3.7 (3.5-5.1) mEq/L Chloride 101 101 (98-107) mEq/L Carbon Dioxide 25 28 (21-32) mEq/L Anion Gap 15.2 H 11.7 (5-15) BUN 11 10 (7-18) mg/dL Creatinine 1.2 1.3 (0.7-1.3) mg/dL Est Cr Clr Drug Dosing 97.99 90.46 mL/min Estimated GFR (MDRD) > 60 > 60 (>60) mL/min BUN/Creatinine Ratio 9.2 L 7.7 L (14-18) Glucose 159 H 109 H (74-106) mg/dL Lactic Acid (0.4-2.0) mmol/L Calcium 9.0 8.5 (8.5-10.1) mg/dL Magnesium 1.7 L (1.8-2.4) mg/dl Med Orders - Current: Current Medications Hydrocodone Bitart/Acetaminophen ([place] 325-5 Mg) 1 tab PO Q6H PRN PRN Reason: Pain Last Admin: 10/18/17 14:50 Dose: 1 tab Heparin Sodium (Porcine) (Heparin Sodium) 5,000 units SUBCUT Q12HR [facility] Last Admin: 10/19/17 08:52 Dose: 5,000 units Hydralazine HCl (Apresoline) 10 mg IVPUSH Q4H PRN PRN Reason: Hypertension Last Admin: 10/18/17 15:00 Dose: 10 mg Hydrochlorothiazide (Hydrochlorothiazide) 25 mg PO DAILY [facility] Last Admin: 10/19/17 08:54 Dose: 25 mg Hydromorphone HCl (Dilaudid) 0.5 mg IVPUSH Q2H PRN PRN Reason: Pain Last Admin: 10/19/17 02:29 Dose: 0.5 mg Cefoxitin Sodium 2 gm/ Premix 50 mls @ 100 mls/hr IV Q6HR [facility] Last Admin: 10/19/17 05:10 Dose: 100 mls/hr Metronidazole 500 mg/ Premix 100 mls @ 100 mls/hr IV Q6H [facility] Last Admin: 10/19/17 05:10 Dose: 100 mls/hr Ketorolac Tromethamine (Toradol) 30 mg IVPUSH Q6H [facility] Last Admin: 10/19/17 09:51 Dose: 30 mg Lisinopril (Prinivil) 10 mg PO DAILY [facility] Last Admin: 10/19/17 08:54 Dose: 10 mg Lorazepam (Ativan) 0.5 mg PO TID PRN PRN Reason: Anxiety Last Admin: 10/19/17 05:26 Dose: 0.5 mg Magnesium Oxide (Magnesium Oxide) 400 mg PO ONETIME ONE Stop: 10/19/17 10:12 Ondansetron HCl (Zofran) 4 mg IVPUSH Q8H PRN PRN Reason: Nausea Oxycodone/Acetaminophen (Percocet 325-5 Mg) 1 - 2 tab PO Q6H PRN PRN Reason: Abdominal Pain Last Admin: 10/19/17 05:06 Dose: 2 tab Sodium Chloride (Saline Flush) 10 ml FLUSH ASDIRECTED PRN PRN Reason: Keep Vein Open Last Admin: 10/18/17 21:12 Dose: 10 ml Discontinued Medications Alprazolam (Xanax) 0.5 mg PO ONETIME ONE Stop: 10/18/17 21:58 Last Admin: 10/18/17 22:23 Dose: 0.5 mg Bupivacaine HCl (Marcaine 0.5%) Confirm Administered Dose 30 ml .ROUTE .STK-MED ONE Stop: 10/17/17 13:35 Last Admin: 10/17/17 14:45 Dose: 30 ml Dexamethasone (Dexamethasone) Confirm Administered Dose 4 mg .ROUTE .STK-MED ONE Stop: 10/17/17 14:49 Famotidine (Pepcid) Confirm Administered Dose 20 mg .ROUTE .STK-MED ONE Stop: 10/17/17 12:57 Fentanyl (Sublimaze) Confirm Administered Dose 100 mcg .ROUTE .STK-MED ONE Stop: 10/17/17 13:14 Fentanyl (Sublimaze) Confirm Administered Dose 250 mcg .ROUTE .STK-MED ONE Stop: 10/17/17 13:45 Fentanyl (Sublimaze) 50 mcg IVPUSH Q5M PRN PRN Reason: Pain Stop: 10/17/17 18:00 Glycopyrrolate () Confirm Administered Dose 1 mg .ROUTE .STK-MED ONE Stop: 10/17/17 15:16 Haloperidol Lactate (Haldol) 1 mg IVPUSH ONETIME ONE Stop: 10/17/17 14:57 Last Admin: 10/17/17 18:49 Dose: Not Given Hydromorphone HCl (Dilaudid) 0.5 mg IVPUSH Q15M PRN PRN Reason: severe pain Stop: 10/17/17 14:57 Hydromorphone HCl (Dilaudid) Confirm Administered Dose 1 mg .ROUTE .STK-MED ONE Stop: 10/17/17 15:25 Cefoxitin Sodium 2 gm/ Premix 50 mls @ 100 mls/hr IV ONETIME ONE Stop: 10/17/17 12:19 Last Admin: 10/17/17 18:49 Dose: Not Given Metronidazole 500 mg/ Premix 100 mls @ 100 mls/hr IV ONETIME ONE Stop: 10/17/17 12:50 Last Admin: 10/17/17 18:49 Dose: Not Given Lactated Ringer's (Ringers, Lactated) 1,000 mls @ 125 mls/hr IV ASDIRECTED [facility] Lidocaine HCl (Xylocaine-Mpf 1%) Confirm Administered Dose 4 mls @ as directed .ROUTE .STK-MED ONE Stop: 10/17/17 13:45 Lactated Ringer's (Ringers, Lactated) Confirm Administered Dose 1,000 mls @ as directed .ROUTE .STK-MED ONE Stop: 10/17/17 14:49 Lactated Ringer's (Ringers, Lactated) 1,000 mls @ 100 mls/hr IV ASDIRECTED [facility] Last Admin: 10/18/17 07:55 Dose: 100 mls/hr Potassium Chloride 10 meq/ (Premix) 100 mls @ 100 mls/hr IV Q1H [facility] Stop: 10/18/17 21:59 Last Admin: 10/18/17 22:54 Dose: 100 mls/hr Sodium Chloride (Normal Saline) 100 mls @ 75 mls/hr IV ASDIRECTED [facility] Last Admin: 10/18/17 21:12 Dose: 75 mls/hr Iopamidol (Isovue-370 (76%)) 100 ml IVPUSH ONETIME ONE Stop: 10/18/17 20:27 Last Admin: 10/18/17 21:12 Dose: 100 ml Ketorolac Tromethamine (Toradol) Confirm Administered Dose 30 mg .ROUTE .STK- MED ONE Stop: 10/17/17 15:23 Ketorolac Tromethamine (Toradol) 30 mg IVPUSH Q6H PRN PRN Reason: Pain Last Admin: 10/18/17 10:06 Dose: 30 mg Ketorolac Tromethamine (Toradol) 30 mg IVPUSH Q6H [facility] Last Admin: 10/18/17 16:23 Dose: Not Given Lidocaine/Sodium Bicarbonate (Buffered Lidocaine 1% In Ns 8.4%) 0.25 ml IV ONETIME PRN PRN Reason: Prior to IV Start Metoclopramide HCl (Reglan) Confirm Administered Dose 10 mg .ROUTE .STK-MED ONE Stop: 10/17/17 13:14 Metoprolol Tartrate (Lopressor) 5 mg IVPUSH Q4H PRN PRN Reason: Tachycardia Metoprolol Tartrate (Lopressor) 50 mg PO ONETIME ONE Stop: 10/18/17 21:58 Last Admin: 10/18/17 22:24 Dose: 50 mg Midazolam HCl (Versed 1 Mg/Ml) Confirm Administered Dose 2 mg .ROUTE .STK-MED ONE Stop: 10/17/17 13:15 Midazolam HCl (Versed 1 Mg/Ml) 2 mg IVPUSH ONETIME PRN PRN Reason: Sedation Stop: 10/17/17 18:00 Neostigmine Methylsulfate (Neostigmine Methylsulfate) Confirm Administered Dose 10 mg .ROUTE .STK-MED ONE Stop: 10/17/17 15:16 Ondansetron HCl (Zofran) Confirm Administered Dose 4 mg .ROUTE .STK-MED ONE Stop: 10/17/17 14:49 Potassium Chloride (Klor-Con M20) 40 meq PO ONETIME ONE Stop: 10/18/17 19:49 Last Admin: 10/18/17 21:20 Dose: 40 meq Propofol (Diprivan 20 Ml) Confirm Administered Dose 400 mg .ROUTE .STK-MED ONE Stop: 10/17/17 13:45 Propofol (Diprivan 20 Ml) Confirm Administered Dose 200 mg .ROUTE .STK-MED ONE Stop: 10/17/17 15:26 Rocuronium [place] (Zemuron) Confirm Administered Dose 50 mg .ROUTE .STK-MED ONE Stop: 10/17/17 13:46 Sodium Chloride (Saline Flush) 10 ml FLUSH ASDIRECTED PRN PRN Reason: Keep Vein Open Succinylcholine Chloride (Quelicin) Confirm Administered Dose 200 mg .ROUTE .STK -MED ONE Stop: 10/17/17 13:45 - Exam Quality Assessment: Supplemental Oxygen, DVT Prophylaxis General: Alert, Oriented, Cooperative, No Acute Distress HEENT: Pupils Equal, EOMI, Mucous Membr. Moist/Feather Sound Neck: Supple Lungs: Clear to Auscultation, Normal Respiratory Effort Cardiovascular: Regular Rate, Regular Rhythm GI/Abdominal Exam: Normal Bowel Sounds, Other (lap incisions WNL, no s/s of infection) (Male) Exam: Deferred Extremities: Normal Inspection, No Pedal Edema, Normal Capillary Refill Peripheral Pulses: 2+: Dorsalis Pedis (L), Dorsalis Pedis (R) Neurological: No New Focal Deficit Psy/Mental Status: Alert Consult PN Assessment/Plan POD#: 1 Procedures: Procedures CHEST X-RAY 2VW FRONTAL&LATL (08/05/15) COMPLETE CBC W/AUTO DIFF WBC (08/05/15) COMPREHEN METABOLIC PANEL (08/05/15) HIV-1/HIV-2 1 RESULT ANTBDY (08/05/15) RBC SED RATE AUTOMATED (08/05/15) (1) S/P laparoscopic appendectomy SNOMED Code(s): 833553745, 667043668 Code(s): Z90.49 - ACQUIRED ABSENCE OF OTHER SPECIFIED PARTS OF DIGESTIVE TRACT Priority: High Current Visit: Yes (2) HTN (hypertension) SNOMED Code(s): 89476589 Code(s): I10 - ESSENTIAL (PRIMARY) HYPERTENSION Priority: High Current Visit: Yes Qualifiers: Hypertension type: unspecified Qualified Code(s): I10 - Essential (primary ) hypertension (3) Alcohol use SNOMED Code(s): 698951956 Code(s): Z78.9 - OTHER SPECIFIED HEALTH STATUS Priority: Medium Current Visit: No Problem List Initiated/Reviewed/Updated: Yes My Orders Last 24 Hours: My Active Orders 10/19/17 10:11 Magnesium Oxide 400 mg PO ONETIME ONE 10/20/17 05:11 BASIC METABOLIC PANEL,BMP [CHEM] AM MAGNESIUM [CHEM] AM Plan: I/P: S/P laparoscopic appendectomy with Dr. Dickerson -Postoperative orders per Dr. Dickerson -Patient is eating, afebrile HTN -Hospitalist service consulted for elevated b/p -? mild detox, drinks alcohol 3-7 days per week -Pressures improved with PO meds as rx'd, one dose of metoprolol given PO last night -Recommend f/up with PCP after discharge for further eval of HTN, b/p's daily at home and record- take record of b/p readings with to provider visit OK for discharge from Hospitalist standpoint with prescribed antihypertensive medications and follow up with PCP for HTN within one week of discharge. Patient is Full Code status.
[2017-10-19 14:38] VITALS: BP 130/78
--- NOTE | 2017-10-19 15:02 | PCM.SURGPN ---
- General Info Date of Service: 10/19/17 - Patient Data Vitals - Most Recent: Last Vital Signs Temp 97.5 F 10/19/17 11:51 Pulse 95 10/19/17 11:51 Resp 16 10/19/17 11:51 BP 130/78 10/19/17 11:51 Pulse Ox 91 L 10/19/17 11:51 Weight - Most Recent: 136.985 kg I&O - Last 24 Hours: Intake & Output 10/18/17 10/19/17 10/19/17 23:59 07:59 15:59 Intake Total 3940 2750 420 Balance 3940 2750 420 Lab Results Last 24 Hrs: Laboratory Results - last 24 hr 10/18/17 10/18/17 10/18/17 Range/Units 19:18 19:18 19:18 WBC 10.01 H (4.23-9.07) K/mm3 RBC 4.50 L (4.63-6.08) M/mm3 Hgb 14.3 (13.7-17.5) gm/L Hct 42.8 (40.1-51.0) % MCV 95.1 H (79.0-92.2) fl MCH 31.8 (25.7-32.2) pg MCHC 33.4 (32.2-35.5) g/dl RDW Std Deviation 45.5 H (35.1-43.9) fL Plt Count 198 (163-337) K/mm3 MPV 10.3 (9.4-12.3) fl Neut % (Auto) 81.0 H (34.0-67.9) % Lymph % (Auto) 11.2 L (21.8-53.1) % Rowan % (Auto) 6.3 (5.3-12.2) % Eos % (Auto) 1.0 (0.8-7.0) Baso % (Auto) 0.2 (0.1-1.2) % Neut # (Auto) 8.11 H (1.78-5.38) K/mm3 Lymph # (Auto) 1.12 L (1.32-3.57) K/mm3 Rowan # (Auto) 0.63 (0.30-0.82) K/mm3 Eos # (Auto) 0.10 (0.04-0.54) K/mm3 Baso # (Auto) 0.02 (0.01-0.08) K/mm3 Manual Slide Review Not Reportable Sodium 137 (136-145) mEq/L Potassium 3.1 L (3.5-5.1) mEq/L Chloride 101 (98-107) mEq/L Carbon Dioxide 26 (21-32) mEq/L Anion Gap 13.1 (5-15) BUN (7-18) mg/dL Creatinine (0.7-1.3) mg/dL Est Cr Clr Drug Dosing mL/min Estimated GFR (MDRD) (>60) mL/min BUN/Creatinine Ratio (14-18) Glucose (74-106) mg/dL Lactic Acid 0.8 (0.4-2.0) mmol/L Calcium (8.5-10.1) mg/dL Magnesium (1.8-2.4) mg/dl 10/18/17 10/19/17 10/19/17 Range/Units 19:18 06:10 06:10 WBC 9.42 H (4.23-9.07) K/mm3 RBC 4.17 L (4.63-6.08) M/mm3 Hgb 13.3 L (13.7-17.5) gm/L Hct 40.2 (40.1-51.0) % MCV 96.4 H (79.0-92.2) fl MCH 31.9 (25.7-32.2) pg MCHC 33.1 (32.2-35.5) g/dl RDW Std Deviation 47.0 H (35.1-43.9) fL Plt Count 212 (163-337) K/mm3 MPV 10.7 (9.4-12.3) fl Neut % (Auto) 73.7 H (34.0-67.9) % Lymph % (Auto) 11.5 L (21.8-53.1) % Rowan % (Auto) 11.5 (5.3-12.2) % Eos % (Auto) 2.8 (0.8-7.0) Baso % (Auto) 0.3 (0.1-1.2) % Neut # (Auto) 6.95 H (1.78-5.38) K/mm3 Lymph # (Auto) 1.08 L (1.32-3.57) K/mm3 Rowan # (Auto) 1.08 H (0.30-0.82) K/mm3 Eos # (Auto) 0.26 (0.04-0.54) K/mm3 Baso # (Auto) 0.03 (0.01-0.08) K/mm3 Manual Slide Review Sodium 138 137 (136-145) mEq/L Potassium 3.2 L 3.7 (3.5-5.1) mEq/L Chloride 101 101 (98-107) mEq/L Carbon Dioxide 25 28 (21-32) mEq/L Anion Gap 15.2 H 11.7 (5-15) BUN 11 10 (7-18) mg/dL Creatinine 1.2 1.3 (0.7-1.3) mg/dL Est Cr Clr Drug Dosing 97.99 90.46 mL/min Estimated GFR (MDRD) > 60 > 60 (>60) mL/min BUN/Creatinine Ratio 9.2 L 7.7 L (14-18) Glucose 159 H 109 H (74-106) mg/dL Lactic Acid (0.4-2.0) mmol/L Calcium 9.0 8.5 (8.5-10.1) mg/dL Magnesium 1.7 L (1.8-2.4) mg/dl Med Orders - Current: Current Medications Hydrocodone Bitart/Acetaminophen (Uriah 325-5 Mg) 1 tab PO Q6H PRN PRN Reason: Pain Last Admin: 10/18/17 14:50 Dose: 1 tab Heparin Sodium (Porcine) (Heparin Sodium) 5,000 units SUBCUT Q12HR [facility] Last Admin: 10/19/17 08:52 Dose: 5,000 units Hydralazine HCl (Apresoline) 10 mg IVPUSH Q4H PRN PRN Reason: Hypertension Last Admin: 10/18/17 15:00 Dose: 10 mg Hydrochlorothiazide (Hydrochlorothiazide) 25 mg PO DAILY [facility] Last Admin: 10/19/17 08:54 Dose: 25 mg Hydromorphone HCl (Dilaudid) 0.5 mg IVPUSH Q2H PRN PRN Reason: Pain Last Admin: 10/19/17 02:29 Dose: 0.5 mg Cefoxitin Sodium 2 gm/ Premix 50 mls @ 100 mls/hr IV Q6HR [facility] Last Admin: 10/19/17 11:42 Dose: 100 mls/hr Metronidazole 500 mg/ Premix 100 mls @ 100 mls/hr IV Q6H [facility] Last Admin: 10/19/17 10:54 Dose: 100 mls/hr Ketorolac Tromethamine (Toradol) 30 mg IVPUSH Q6H [facility] Last Admin: 10/19/17 09:51 Dose: 30 mg Lisinopril (Prinivil) 10 mg PO DAILY [facility] Last Admin: 10/19/17 08:54 Dose: 10 mg Lorazepam (Ativan) 0.5 mg PO TID PRN PRN Reason: Anxiety Last Admin: 10/19/17 05:26 Dose: 0.5 mg Ondansetron HCl (Zofran) 4 mg IVPUSH Q8H PRN PRN Reason: Nausea Oxycodone/Acetaminophen (Percocet 325-5 Mg) 1 - 2 tab PO Q6H PRN PRN Reason: Abdominal Pain Last Admin: 10/19/17 10:53 Dose: 2 tab Sodium Chloride (Saline Flush) 10 ml FLUSH ASDIRECTED PRN PRN Reason: Keep Vein Open Last Admin: 10/18/17 21:12 Dose: 10 ml Discontinued Medications Alprazolam (Xanax) 0.5 mg PO ONETIME ONE Stop: 10/18/17 21:58 Last Admin: 10/18/17 22:23 Dose: 0.5 mg Bupivacaine HCl (Marcaine 0.5%) Confirm Administered Dose 30 ml .ROUTE .STK-MED ONE Stop: 10/17/17 13:35 Last Admin: 10/17/17 14:45 Dose: 30 ml Dexamethasone (Dexamethasone) Confirm Administered Dose 4 mg .ROUTE .STK-MED ONE Stop: 10/17/17 14:49 Famotidine (Pepcid) Confirm Administered Dose 20 mg .ROUTE .STK-MED ONE Stop: 10/17/17 12:57 Fentanyl (Sublimaze) Confirm Administered Dose 100 mcg .ROUTE .STK-MED ONE Stop: 10/17/17 13:14 Fentanyl (Sublimaze) Confirm Administered Dose 250 mcg .ROUTE .STK-MED ONE Stop: 10/17/17 13:45 Fentanyl (Sublimaze) 50 mcg IVPUSH Q5M PRN PRN Reason: Pain Stop: 10/17/17 18:00 Glycopyrrolate () Confirm Administered Dose 1 mg .ROUTE .STK-MED ONE Stop: 10/17/17 15:16 Haloperidol Lactate (Haldol) 1 mg IVPUSH ONETIME ONE Stop: 10/17/17 14:57 Last Admin: 10/17/17 18:49 Dose: Not Given Hydromorphone HCl (Dilaudid) 0.5 mg IVPUSH Q15M PRN PRN Reason: severe pain Stop: 10/17/17 14:57 Hydromorphone HCl (Dilaudid) Confirm Administered Dose 1 mg .ROUTE .STK-MED ONE Stop: 10/17/17 15:25 Cefoxitin Sodium 2 gm/ Premix 50 mls @ 100 mls/hr IV ONETIME ONE Stop: 10/17/17 12:19 Last Admin: 10/17/17 18:49 Dose: Not Given Metronidazole 500 mg/ Premix 100 mls @ 100 mls/hr IV ONETIME ONE Stop: 10/17/17 12:50 Last Admin: 10/17/17 18:49 Dose: Not Given Lactated Ringer's (Ringers, Lactated) 1,000 mls @ 125 mls/hr IV ASDIRECTED [facility] Lidocaine HCl (Xylocaine-Mpf 1%) Confirm Administered Dose 4 mls @ as directed .ROUTE .STK-MED ONE Stop: 10/17/17 13:45 Lactated Ringer's (Ringers, Lactated) Confirm Administered Dose 1,000 mls @ as directed .ROUTE .STK-MED ONE Stop: 10/17/17 14:49 Lactated Ringer's (Ringers, Lactated) 1,000 mls @ 100 mls/hr IV ASDIRECTED [facility] Last Admin: 10/18/17 07:55 Dose: 100 mls/hr Potassium Chloride 10 meq/ (Premix) 100 mls @ 100 mls/hr IV Q1H [facility] Stop: 10/18/17 21:59 Last Admin: 10/18/17 22:54 Dose: 100 mls/hr Sodium Chloride (Normal Saline) 100 mls @ 75 mls/hr IV ASDIRECTED [facility] Last Admin: 10/18/17 21:12 Dose: 75 mls/hr Iopamidol (Isovue-370 (76%)) 100 ml IVPUSH ONETIME ONE Stop: 10/18/17 20:27 Last Admin: 10/18/17 21:12 Dose: 100 ml Ketorolac Tromethamine (Toradol) Confirm Administered Dose 30 mg .ROUTE .STK- MED ONE Stop: 10/17/17 15:23 Ketorolac Tromethamine (Toradol) 30 mg IVPUSH Q6H PRN PRN Reason: Pain Last Admin: 10/18/17 10:06 Dose: 30 mg Ketorolac Tromethamine (Toradol) 30 mg IVPUSH Q6H [facility] Last Admin: 10/18/17 16:23 Dose: Not Given Lidocaine/Sodium Bicarbonate (Buffered Lidocaine 1% In Ns 8.4%) 0.25 ml IV ONETIME PRN PRN Reason: Prior to IV Start Magnesium Oxide (Magnesium Oxide) 400 mg PO ONETIME ONE Stop: 10/19/17 10:12 Last Admin: 10/19/17 10:53 Dose: 400 mg Metoclopramide HCl (Reglan) Confirm Administered Dose 10 mg .ROUTE .STK-MED ONE Stop: 10/17/17 13:14 Metoprolol Tartrate (Lopressor) 5 mg IVPUSH Q4H PRN PRN Reason: Tachycardia Metoprolol Tartrate (Lopressor) 50 mg PO ONETIME ONE Stop: 10/18/17 21:58 Last Admin: 10/18/17 22:24 Dose: 50 mg Midazolam HCl (Versed 1 Mg/Ml) Confirm Administered Dose 2 mg .ROUTE .STK-MED ONE Stop: 10/17/17 13:15 Midazolam HCl (Versed 1 Mg/Ml) 2 mg IVPUSH ONETIME PRN PRN Reason: Sedation Stop: 10/17/17 18:00 Neostigmine Methylsulfate (Neostigmine Methylsulfate) Confirm Administered Dose 10 mg .ROUTE .STK-MED ONE Stop: 10/17/17 15:16 Ondansetron HCl (Zofran) Confirm Administered Dose 4 mg .ROUTE .STK-MED ONE Stop: 10/17/17 14:49 Potassium Chloride (Klor-Con M20) 40 meq PO ONETIME ONE Stop: 10/18/17 19:49 Last Admin: 10/18/17 21:20 Dose: 40 meq Propofol (Diprivan 20 Ml) Confirm Administered Dose 400 mg .ROUTE .STK-MED ONE Stop: 10/17/17 13:45 Propofol (Diprivan 20 Ml) Confirm Administered Dose 200 mg .ROUTE .STK-MED ONE Stop: 10/17/17 15:26 Rocuronium Popejoy (Zemuron) Confirm Administered Dose 50 mg .ROUTE .STK-MED ONE Stop: 10/17/17 13:46 Sodium Chloride (Saline Flush) 10 ml FLUSH ASDIRECTED PRN PRN Reason: Keep Vein Open Succinylcholine Chloride (Quelicin) Confirm Administered Dose 200 mg .ROUTE .STK -MED ONE Stop: 10/17/17 13:45 - Problem List Review Problem List Initiated/Reviewed/Updated: Yes - My Orders Last 24 Hours: Active Orders 24 hr Category Date Time Status Patient Status [ADT] Routine ADT 10/18/17 19:44 Active IS (RT) [RT Incentive Spirometry] [RC] ASDIRECTED Care 10/18/17 22:09 Active Oxygen Therapy Adult [Oxygen Therapy] [RC] ASDIRECTED Care 10/19/17 00:29 Active Regular Diet [DIET] Diet 10/18/17 Dinner Active BASIC METABOLIC PANEL,BMP [CHEM] AM Lab 10/20/17 05:11 Ordered CBC W/O DIFF,HEMOGRAM [HEME] MOTH@0700 Lab 10/20/17 07:00 Ordered CBC W/O DIFF,HEMOGRAM [HEME] MOTH@0700 Lab 10/24/17 07:00 Ordered CBC W/O DIFF,HEMOGRAM [HEME] MOTH@0700 Lab 10/27/17 07:00 Ordered CBC W/O DIFF,HEMOGRAM [HEME] MOTH@0700 Lab 10/31/17 07:00 Ordered CBC W/O DIFF,HEMOGRAM [HEME] MOTH@0700 Lab 11/03/17 07:00 Ordered CBC W/O DIFF,HEMOGRAM [HEME] MOTH@0700 Lab 11/07/17 07:00 Ordered MAGNESIUM [CHEM] AM Lab 10/20/17 05:11 Ordered Acetaminophen/oxyCODONE [Percocet 325-5 MG] Med 10/18/17 16:33 Active 1 - 2 tab PO Q6H PRN Heparin Sodium Med 10/18/17 21:00 Active 5,000 units SUBCUT Q12HR Ketorolac [Toradol] Med 10/18/17 16:00 Active 30 mg IVPUSH Q6H Medication Orders Hydrocodone Bitart/Acetaminophen (Uriah 325-5 Mg) 1 tab PO Q6H PRN PRN Reason: Pain Last Admin: 10/18/17 14:50 Dose: 1 tab Admin: 10/17/17 17:59 Dose: 1 tab Heparin Sodium (Porcine) (Heparin Sodium) 5,000 units SUBCUT Q12HR [facility] Last Admin: 10/19/17 08:52 Dose: 5,000 units Admin: 10/18/17 21:21 Dose: 5,000 units Hydralazine HCl (Apresoline) 10 mg IVPUSH Q4H PRN PRN Reason: Hypertension Last Admin: 10/18/17 15:00 Dose: 10 mg Hydrochlorothiazide (Hydrochlorothiazide) 25 mg PO DAILY [facility] Last Admin: 10/19/17 08:54 Dose: 25 mg Admin: 10/18/17 13:15 Dose: 25 mg Hydromorphone HCl (Dilaudid) 0.5 mg IVPUSH Q2H PRN PRN Reason: Pain Last Admin: 10/19/17 02:29 Dose: 0.5 mg Admin: 10/18/17 21:23 Dose: 0.5 mg Admin: 10/18/17 14:51 Dose: 0.5 mg Admin: 10/18/17 13:11 Dose: 0.5 mg Admin: 10/18/17 11:23 Dose: 0.5 mg Admin: 10/18/17 08:54 Dose: 0.5 mg Admin: 10/18/17 06:52 Dose: 0.5 mg Admin: 10/18/17 04:26 Dose: 0.5 mg Admin: 10/18/17 00:21 Dose: 0.5 mg Admin: 10/17/17 21:53 Dose: 0.5 mg Admin: 10/17/17 18:57 Dose: 0.5 mg Cefoxitin Sodium 2 gm/ Premix 50 mls @ 100 mls/hr IV Q6HR [facility] Last Admin: 10/19/17 11:42 Dose: 100 mls/hr Infusion: 10/19/17 05:40 Dose: 100 mls/hr Admin: 10/19/17 05:10 Dose: 100 mls/hr Infusion: 10/19/17 00:29 Dose: 100 mls/hr Admin: 10/18/17 23:59 Dose: 100 mls/hr Infusion: 10/18/17 18:12 Dose: 100 mls/hr Admin: 10/18/17 17:42 Dose: 100 mls/hr Infusion: 10/18/17 11:59 Dose: 100 mls/hr Admin: 10/18/17 11:29 Dose: 100 mls/hr Infusion: 10/18/17 06:58 Dose: 100 mls/hr Admin: 10/18/17 06:28 Dose: 100 mls/hr Infusion: 10/18/17 02:33 Dose: 100 mls/hr Admin: 10/18/17 02:03 Dose: 100 mls/hr Infusion: 10/17/17 22:11 Dose: 100 mls/hr Admin: 10/17/17 21:41 Dose: 100 mls/hr Metronidazole 500 mg/ Premix 100 mls @ 100 mls/hr IV Q6H [facility] Last Admin: 10/19/17 10:54 Dose: 100 mls/hr Infusion: 10/19/17 06:10 Dose: 100 mls/hr Admin: 10/19/17 05:10 Dose: 100 mls/hr Infusion: 10/19/17 00:59 Dose: 100 mls/hr Admin: 10/18/17 23:59 Dose: 100 mls/hr Infusion: 10/18/17 17:24 Dose: 100 mls/hr Admin: 10/18/17 16:24 Dose: 100 mls/hr Infusion: 10/18/17 11:00 Dose: 100 mls/hr Admin: 10/18/17 10:00 Dose: 100 mls/hr Infusion: 10/18/17 05:03 Dose: 100 mls/hr Admin: 10/18/17 04:03 Dose: 100 mls/hr Infusion: 10/18/17 01:23 Dose: 100 mls/hr Admin: 10/18/17 00:23 Dose: 100 mls/hr Infusion: 10/17/17 19:00 Dose: 100 mls/hr Admin: 10/17/17 18:00 Dose: 100 mls/hr Ketorolac Tromethamine (Toradol) 30 mg IVPUSH Q6H [facility] Last Admin: 10/19/17 09:51 Dose: 30 mg Admin: 10/19/17 05:07 Dose: 30 mg Admin: 10/18/17 21:22 Dose: 30 mg Admin: 10/18/17 16:27 Dose: 30 mg Lisinopril (Prinivil) 10 mg PO DAILY [facility] Last Admin: 10/19/17 08:54 Dose: 10 mg Admin: 10/18/17 13:15 Dose: 10 mg Lorazepam (Ativan) 0.5 mg PO TID PRN PRN Reason: Anxiety Last Admin: 10/19/17 05:26 Dose: 0.5 mg Admin: 10/18/17 16:23 Dose: 0.5 mg Admin: 10/18/17 09:04 Dose: 0.5 mg Admin: 10/17/17 21:55 Dose: 0.5 mg Ondansetron HCl (Zofran) 4 mg IVPUSH Q8H PRN PRN Reason: Nausea Oxycodone/Acetaminophen (Percocet 325-5 Mg) 1 - 2 tab PO Q6H PRN PRN Reason: Abdominal Pain Last Admin: 10/19/17 10:53 Dose: 2 tab Admin: 10/19/17 05:06 Dose: 2 tab Admin: 10/19/17 00:00 Dose: 2 tab Admin: 10/18/17 17:27 Dose: 2 tab Sodium Chloride (Saline Flush) 10 ml FLUSH ASDIRECTED PRN PRN Reason: Keep Vein Open Last Admin: 10/18/17 21:12 Dose: 10 ml - Plan Plan (Free Text/Narrative):: discharge dictated JACKI
[2017-10-19] MEDS ORDERED: Diphtheria,Pertussis(Acell),Tetanus Vaccine 0.5 ML SDV IM ONE (15:26)
[2017-10-19] MEDS ORDERED: FLU Vacc QS 2017-18 (6mos UP)/PF 60 MCG/0.5 ML Syringe IM ONE (15:26)
--- NOTE | 2017-10-20 04:43 | DISCH ---
ADMISSION DATE: 10/17/2017 DISCHARGE DATE: 10/19/2017 HOSPITAL COURSE: This is a 37-year-old who came in through the emergency room on 10/17/2017 with a history of right lower quadrant pain which was worked up and found to have acute appendicitis with a fecalith. The patient was started on antibiotics, brought to the operating room where he underwent a laparoscopic appendectomy. He was found to have a perforated appendix with fecalith in the peritoneal cavity and these were removed. Postoperative course was marked by pain and difficulty coughing and various pain medications were tried. Elected to use Toradol q.6 hours on a schedule with Percocet. He also has had some anxiety in which 0.5 mg of Ativan was used with some help. The patient responded to this. He was noted to have a high blood pressure, and eventually on consultation with Medicine, he elected to try Apresoline. He did have a tachycardia at 131, which was then worked up and with a laboratory data showing a potassium of 3.[address] angiogram was negative and his hemoglobin was normal. The patient underwent further testing with the echocardiogram. The report which was to follow. He was placed on telemetry and watched and his tachycardia came under control. He did have some hypoxia, which responded to coughing and deep breathing and O2 which he was weaned off. His wounds were healing without problem. Abdomen soft. At the time he was discharged, having bowel movements, eating a regular diet. He was discharged with diagnoses of: 1. Hypertension, newly discovered and treated. 2. Tachycardia, resolved. 3. Hypokalemia, treated and resolved. 4. Anxiety, which was treated, resolved. 5. Postoperative pain, which was treated and managed. 6. Acute appendicitis with rupture, which was treated with antibiotics. The patient reached maximum hospital benefit and discharged on a regular diet. FOLLOW-UP: Follow up in the clinic in 1 week and to Medicine in 1 week. DISCHARGE MEDICATIONS: Medications will consist of hypertensive medications which is going to be lisinopril 10 mg daily, hydrochlorothiazide 25 mg a day, whether they continue hydralazine is uncertain, and he will be continued on antibiotics of Augmentin 875 mg one b.i.d. for about 4 days. This will be discontinued. He will have Ativan 0.5 mg t.i.d. p.r.n. and Percocet 5 mg/325 one p.o. q.i.d. p.r.n. pain. ACTIVITY: No work. CONDITION ON DISCHARGE: Improved. FINAL DIAGNOSIS: DIET: MMODAL /[id number]
--- NOTE | 2017-10-20 07:33 | DISCH ---
ADMISSION DATE: 10/17/2017 DISCHARGE DATE: 10/19/2017 ADDENDUM: Lorazepam and Xanax will not be prescribed as discharge medications. MMODAL /[id number]
== END 2017-10-19 16:15 | disposition home or self-care (01) | DRG 225 ==
LOC: JD.MS 11:44
PROVIDERS: ADMIT Surgery; ATTEND Surgery
PROC: 0DTJ4ZZ Resection of Appendix, Percutaneous Endoscopic Approach (ICD-10-PCS; principal; 2017-10-17)
DX: K35.2 Acute appendicitis with generalized peritonitis (principal); Z87.891 Personal history of nicotine dependence; I10 Essential (primary) hypertension; F40.240 Claustrophobia; Z72.89 Other problems related to lifestyle; R00.0 Tachycardia, unspecified
CPT/HCPCS: 00840; 36415; 71275; 71275-26; 74020; 74020-26; 80048; 80051; 81003; 83605; 83735; 85025; 90471; 90686; 90715; 93005; 93306; A9270-GY; J0330; J0360; J0694; J1100; J1170; J1644; J1885; J2250; J2405; J2704; J2710; J2765; J3010; J3480; J7030; J7050; J7120; Q9967

== ENCOUNTER 2021-09-04 10:04 | Emergency (ER) | payer BC ==
[2021-09-04 10:19] VITALS: BP 123/85; PULSE 127
[2021-09-04] MEDS ORDERED: Sodium Chloride 0.9% 10 ML Syringe FLUSH PRN (10:59)
[2021-09-04] MEDS ORDERED: Sodium Chloride 0.9% 1,000 ML IV SCH (11:00)
[2021-09-04] MEDS ORDERED: Albuterol/Ipratropium 3.0-0.5 MG/3 ML Neb Soln NEB ONE (11:01)
[2021-09-04] MEDS ORDERED: Dexamethasone 4 MG/ML SDV IVPUSH ONE (11:02)
--- NOTE | 2021-09-04 11:41 | CR ---
Chest: Frontal view of the chest was obtained. Comparison: Prior chest x-ray of 08/05/[address] of 10/18/17. Heart size and mediastinum are within normal limits. Patchy areas of increased density are seen within the upper and lower lungs on both sides. Bony structures show nothing acute. Impression: 1. Increased density throughout both sides of the chest. Findings are suspicious for COVID pneumonia. Please correlate. Diagnostic code #3
--- NOTE | 2021-09-04 14:57 | EDM.PDOC ---
ED HPI GENERAL MEDICAL PROBLEM - General Chief Complaint: Respiratory Problem Stated Complaint: COVID +/SOB Time Seen by Provider: 09/04/21 10:42 Source of Information: Reports: Patient History Limitations: Reports: No Limitations - History of Present Illness INITIAL COMMENTS - FREE TEXT/NARRATIVE: The patient presents with COVID 19. He has a cough, shortness of breath, and na usea. He was given monoclonal antibodies on Tuesday and it seemed to get worse. He has no lung issues such as asthma or COPD. He does not smoke. He has a history of hypertension. He is on cozaar for. He has no diarrhea or vomiting. He started having symptoms about 10 days ago. Onset: Gradual Duration: Day(s): (10) Severity: Moderate Improves with: Reports: None Worsens with: Reports: None Associated Symptoms: Reports: Cough, Fever/Chills, Nausea/Vomiting, Shortness of Breath. Denies: Headaches - Related Data Allergies Allergy/AdvReac Type Severity Reaction Status Date / Time No Known Drug Allergies Allergy Other Verified 09/04/21 10:19 Home Meds: Home Meds Losartan [Cozaar] 100 mg PO DAILY 09/04/21 [History] dexAMETHasone [Dexamethasone] 6 mg PO DAILY #10 tab 09/04/21 [Rx] Past Medical History HEENT History: Reports: Other (See Below) Other HEENT History: Lymph node cyst Cardiovascular History: Reports: None Respiratory History: Reports: None Other Respiratory History: smoker Gastrointestinal History: Reports: None Genitourinary History: Reports: None Musculoskeletal History: Reports: None Neurological History: Reports: None Psychiatric History: Reports: None Endocrine/Metabolic History: Reports: None Hematologic History: Reports: None Immunologic History: Reports: None Oncologic (Cancer) History: Reports: None Dermatologic History: Reports: None - Infectious Disease History Infectious Disease History: Reports: Novel Coronavirus - Past Surgical History Head Surgeries/Procedures: Reports: None HEENT Surgical History: Reports: Other (See Below) Other HEENT Surgeries/Procedures: Removal of cyst on lymph node Cardiovascular Surgical History: Reports: None Respiratory Surgical History: Reports: None GI Surgical History: Reports: None Male Surgical History: Reports: Vasectomy Endocrine Surgical History: Reports: None Neurological Surgical History: Reports: None Musculoskeletal Surgical History: Reports: None Oncologic Surgical History: Reports: None Dermatological Surgical History: Reports: None Social & Family History - Tobacco Use Tobacco Use Status *Q: Current Every Day Tobacco User Years of Tobacco use: 20 Packs/Tins Daily: 0.5 - Caffeine Use Caffeine Use: Reports: Coffee, Soda Other Caffeine Use: couple/day - Recreational Drug Use Recreational Drug Use: No ED ROS GENERAL - Review of Systems Review Of Systems: See Below Constitutional: Reports: Chills, Malaise, Weakness, Fatigue. Denies: Fever HEENT: Reports: No Symptoms Respiratory: Reports: Shortness of Breath, Cough Cardiovascular: Reports: No Symptoms Endocrine: Reports: Fatigue GI/Abdominal: Reports: Nausea. Denies: Abdominal Pain, Vomiting : Reports: No Symptoms Musculoskeletal: Reports: No Symptoms ED EXAM, GENERAL - Physical Exam Exam: See Below Exam Limited By: No Limitations General Appearance: Alert, No Apparent Distress Ears: Normal External Exam Nose: Normal Inspection Head: Atraumatic, Normocephalic Neck: Normal Inspection Respiratory/Chest: No Respiratory Distress, Decreased Breath Sounds Cardiovascular: Regular Rate, Rhythm, No Edema, No Murmur GI/Abdominal: Soft, Non-Tender, No Organomegaly, No Mass Rectal (Males) Exam: Normal Exam Back Exam: Normal Inspection #1 Interpretation EKG Date: 09/04/21 Time: :22 Rhythm: NSR Rate (Beats/Min): 97 [place]: Normal P-Wave: Present QRS: Normal ST-T: Normal QT: Normal Course - Vital Signs Last Recorded V/S: Last Vital Signs Temp 97.7 F 09/04/21 10:16 Pulse 127 H 09/04/21 10:16 Resp 24 H 09/04/21 10:16 BP 123/85 09/04/21 10:16 Pulse Ox 89 L 09/04/21 11:35 - Orders/Labs/Meds Orders: Active Orders 24 hr Category Date Time Status Cardiac Monitoring [RC] . DIRECTED Care 09/04/21 10:59 Active Oxygen Therapy [RC] PRN Care 09/04/21 10:59 Active Peripheral IV Care [RC] . DIRECTED Care 09/04/21 11:01 Active RT Aerosol Therapy [RC] ASDIRECTED Care 09/04/21 11:02 Active Sodium Chloride 0.9% [Normal Saline] 1,000 ml Med 09/04/21 11:00 Active IV .BOLUS Sodium Chloride 0.9% [Saline Flush] Med 09/04/21 10:59 Active 10 ml FLUSH ASDIRECTED PRN Peripheral IV Insertion Adult [OM.PC] Stat Oth 09/04/21 10:59 Ordered Medication Orders Sodium Chloride (Normal Saline) 1,000 mls @ 1,000 mls/hr IV .BOLUS LORENZO Last Admin: 09/04/21 11:47 Dose: 1,000 mls/hr Documented by: ANGEL Sodium Chloride (Sodium Chloride 0.9% 10 Ml Syringe) 10 ml FLUSH ASDIRECTED PRN PRN Reason: Keep Vein Open Last Admin: 09/04/21 11:46 Dose: 10 ml Documented by: ANGEL Labs: Laboratory Tests 09/04/21 09/04/21 09/04/21 Range/Units 11:30 11:30 11:30 WBC 5.68 (4.23-9.07) K/mm3 RBC 4.66 (4.63-6.08) M/mm3 Hgb 15.1 D (13.7-17.5) gm/dl Hct 44.8 (40.1-51.0) % MCV 96.1 H (79.0-92.2) fl MCH 32.4 H (25.7-32.2) pg MCHC 33.7 (32.2-35.5) g/dl RDW Std Deviation 47.5 H (35.1-43.9) fL Plt Count 212 (163-337) K/mm3 MPV 10.0 (9.4-12.3) fl Neut % (Auto) 76.7 H (34.0-67.9) % Lymph % (Auto) 9.5 L (21.8-53.1) % [place] % (Auto) 13.0 H (5.3-12.2) % Eos % (Auto) 0.2 L (0.8-7.0) Baso % (Auto) 0.2 (0.1-1.2) % Neut # (Auto) 4.36 (1.78-5.38) K/mm3 Lymph # (Auto) 0.54 L (1.32-3.57) K/mm3 [place] # (Auto) 0.74 (0.30-0.82) K/mm3 Eos # (Auto) 0.01 L (0.04-0.54) K/mm3 Baso # (Auto) 0.01 (0.01-0.08) K/mm3 PT 10.1 (9.7-12.0) SECONDS INR < 0.93 APTT 31.3 (21.7-31.4) SECONDS D-Dimer, Quantitative 0.47 (0.19-0.50) mg/L Sodium 135 L (136-145) mEq/L Potassium 3.6 (3.5-5.1) mEq/L Chloride 98 (98-107) mEq/L Carbon Dioxide 25 (21-32) mEq/L Anion Gap 15.6 H (5-15) BUN 9 (7-18) mg/dL Creatinine 0.9 (0.7-1.3) mg/dL Est Cr Clr Drug Dosing TNP Estimated GFR (MDRD) > 60 (>60) mL/min BUN/Creatinine Ratio 10.0 L (14-18) Glucose 125 H (70-99) mg/dL Lactic Acid (0.4-2.0) mmol/L Calcium 8.7 (8.5-10.1) mg/dL Total Bilirubin 1.2 H (0.2-1.0) mg/dL AST 108 H (15-37) U/L ALT 149 H (16-63) U/L Alkaline Phosphatase 148 H (46-116) U/L Troponin I < 0.017 (0.00-0.056) ng/mL C-Reactive Protein 6.4 H* (<1.0) mg/dL Total Protein 6.7 (6.4-8.2) g/dl Albumin 2.8 L (3.4-5.0) g/dl Globulin 3.9 gm/dL Albumin/Globulin Ratio 0.7 L (1-2) 09/04/21 Range/Units 12:16 WBC (4.23-9.07) K/mm3 RBC (4.63-6.08) M/mm3 Hgb (13.7-17.5) gm/dl Hct (40.1-51.0) % MCV (79.0-92.2) fl MCH (25.7-32.2) pg MCHC (32.2-35.5) g/dl RDW Std Deviation (35.1-43.9) fL Plt Count (163-337) K/mm3 MPV (9.4-12.3) fl Neut % (Auto) (34.0-67.9) % Lymph % (Auto) (21.8-53.1) % [place] % (Auto) (5.3-12.2) % Eos % (Auto) (0.8-7.0) Baso % (Auto) (0.1-1.2) % Neut # (Auto) (1.78-5.38) K/mm3 Lymph # (Auto) (1.32-3.57) K/mm3 [place] # (Auto) (0.30-0.82) K/mm3 Eos # (Auto) (0.04-0.54) K/mm3 Baso # (Auto) (0.01-0.08) K/mm3 PT (9.7-12.0) SECONDS INR APTT (21.7-31.4) SECONDS D-Dimer, Quantitative (0.19-0.50) mg/L Sodium (136-145) mEq/L Potassium (3.5-5.1) mEq/L Chloride (98-107) mEq/L Carbon Dioxide (21-32) mEq/L Anion Gap (5-15) BUN (7-18) mg/dL Creatinine (0.7-1.3) mg/dL Est Cr Clr Drug Dosing Estimated GFR (MDRD) (>60) mL/min BUN/Creatinine Ratio (14-18) Glucose (70-99) mg/dL Lactic Acid 1.1 (0.4-2.0) mmol/L Calcium (8.5-10.1) mg/dL Total Bilirubin (0.2-1.0) mg/dL AST (15-37) U/L ALT (16-63) U/L Alkaline Phosphatase (46-116) U/L Troponin I (0.00-0.056) ng/mL C-Reactive Protein (<1.0) mg/dL Total Protein (6.4-8.2) g/dl Albumin (3.4-5.0) g/dl Globulin gm/dL Albumin/Globulin Ratio (1-2) Meds: Medications Generic Name Dose Route Start Last Admin Trade Name Freq PRN Reason Stop Dose Admin Sodium Chloride 1,000 mls @ 1,000 mls/hr 09/04/21 11:00 09/04/21 11:47 Normal Saline IV 1,000 mls/hr .BOLUS LORENZO Administration Sodium Chloride 10 ml 09/04/21 10:59 09/04/21 11:46 Sodium Chloride 0.9% 10 Ml Syringe FLUSH 10 ml ASDIRECTED PRN Administration Keep Vein Open Discontinued Medications Generic Name Dose Route Start Last Admin Trade Name Freq PRN Reason Stop Dose Admin Albuterol/Ipratropium 3 ml 09/04/21 11:01 09/04/21 11:19 Albuterol/Ipratropium 3.0-0.5 Mg/3 Ml Neb Soln NEB 09/04/21 11:02 3 ml ONETIME ONE Administration Dexamethasone 6 mg 09/04/21 11:02 09/04/21 11:46 Dexamethasone 4 Mg/Ml Sdv IVPUSH 09/04/21 11:03 6 mg ONETIME ONE Administration - Re-Assessments/Exams Free Text/Narrative Re-Assessment/Exam: 09/04/21 14:59 I ordered oxygen, IV NS 1L bolus, EKG, CXR, labs, duoneb and dexamethasone. His EKG shows a NSR with no acute changes. His CXR shows increased density throughout both sides of the chest. Findings suspicious for COVID pneumonia. His CBC and PT PTT look good. His D-dimer is negative. His lactic acid is normal. His total bili si elevated at 1.2. His AST is elevated at 108. His ALT is elevated at 109. His alk phos is elevated at 148. His troponin is negative. His CRP is elevated at 6.4. He is requiring about 4L to keep his oxygen saturations above 90. I will get him on home oxygen, albuterol and dexamethasone. Departure - Departure Time of Disposition: 15:05 Disposition: Home, Self-Care 01 Condition: Good Clinical Impression: COVID-19, Pneumonia due to COVID-19 virus, Hypoxia - Discharge Information *PRESCRIPTION DRUG MONITORING PROGRAM REVIEWED*: Not Applicable *COPY OF PRESCRIPTION DRUG MONITORING REPORT IN PATIENT KENY: Not Applicable Prescriptions: dexAMETHasone [Dexamethasone] 6 mg PO DAILY #10 tab Referrals: PCP,None [Primary Care Provider] - Fracisco Hamilton MD [Physician] - 1 Week Additional Instructions: Wear the oxygen at all times. Try to lay on your chest. That will help ox ygenate more lung tissue. Take the dexamethasone 1.5pills daily until gone. Use the inhaler 2 puffs every 6 hours as needed for shortness of breath. Please return if you are worse. Sepsis Event Note (ED) - Evaluation Sepsis Screening Result: No Definite Risk - Focused Exam Vital Signs: Vital Signs Temp Pulse Resp BP Pulse Ox Pulse Ox 09/04/21 11:35 89 L 09/04/21 10:16 97.7 F 127 H 24 H 123/85 83 L - My Orders Last 24 Hours: My Active Orders 09/04/21 10:59 Cardiac Monitoring [RC] . DIRECTED Oxygen Therapy [RC] PRN Sodium Chloride 0.9% [Saline Flush] 10 ml FLUSH ASDIRECTED PRN Peripheral IV Insertion Adult [OM.PC] Stat 09/04/21 11:00 Sodium Chloride 0.9% [Normal Saline] 1,000 ml IV .BOLUS 09/04/21 11:01 Peripheral IV Care [RC] . DIRECTED 09/04/21 11:02 RT Aerosol Therapy [RC] ASDIRECTED - Assessment/Plan Last 24 Hours: My Active Orders 09/04/21 10:59 Cardiac Monitoring [RC] . DIRECTED Oxygen Therapy [RC] PRN Sodium Chloride 0.9% [Saline Flush] 10 ml FLUSH ASDIRECTED PRN Peripheral IV Insertion Adult [OM.PC] Stat 09/04/21 11:00 Sodium Chloride 0.9% [Normal Saline] 1,000 ml IV .BOLUS 09/04/21 11:01 Peripheral IV Care [RC] . DIRECTED 09/04/21 11:02 RT Aerosol Therapy [RC] ASDIRECTED
[2021-09-04] MEDS ORDERED: Albuterol 6.7 GM Inhaler INH ONE (15:05)
== END 2021-09-04 15:35 | disposition home or self-care (01) ==
LOC: JD.ED 10:04
DX: U07.1 COVID-19 (principal); J12.82 Pneumonia due to coronavirus disease 2019; R09.02 Hypoxemia; Z79.899 Other long term (current) drug therapy; Z86.16 Personal history of COVID-19; Z72.0 Tobacco use
CPT/HCPCS: 36415; 71045; 80053; 83605; 84484; 85025; 85379; 85610; 85730; 86140; 93005; 94640; 96374; 99285; A9270; J1100; J7030; J7620-GY

== ENCOUNTER 2024-05-08 16:22 | Emergency (ER) | payer BC ==
[2024-05-08] MEDS: LORazepam 2 MG/ML SDV IVPUSH ONE ×2 (17:00→17:13)
[2024-05-08] MEDS: Sodium Chloride 0.9% 1,000 ML IV SCH (17:01)
[2024-05-08] MEDS: Ondansetron 4 MG/2 ML SDV IVPUSH ONE (17:01)
[2024-05-08] MEDS ORDERED: LORazepam 2 MG/ML SDV IVPUSH ONE (17:07)
[2024-05-08] MEDS: Sodium Chloride 0.9% 10 ML Syringe FLUSH PRN (17:10)
[2024-05-08 17:13] LABS: BASOPHILS ABSOLUTE AUTO 0.1 K/mm3 (0.0-0.2); BASOPHILS PERCENT AUTO 0.9 % (0.0-1.0); EOSINOPHILS ABSOLUTE AUTO 0.1 K/mm3 (0.0-0.4); EOSINOPHILS PERCENT AUTO 1.4 % (0.0-6.0); HEMATOCRIT 42.8 % (42.0-52.0); HEMOGLOBIN 15.3 gm/dl (14.0-18.0); IMMATURE GRAN ABSOLUTE AUTO 0.06 K/mm3 (0.00-0.05); IMMATURE GRAN PERCENT AUTO 0.6 % (0.0-0.4); LYMPHOCYTES ABSOLUTE AUTO 1.6 K/mm3 (1.0-4.8); LYMPHOCYTES PERCENT AUTO 15.9 % (24.0-44.0); MEAN CORPUSCULAR HEMOGLOBIN 33.9 pg (28.0-32.0); MEAN CORPUSCULAR HGB CONC 35.7 g/dl (32.0-36.0); MEAN CORPUSCULAR VOLUME 94.9 fl (83.0-99.0); MEAN PLATELET VOLUME 9.9 fl (9.4-12.4); MONOCYTES ABSOLUTE AUTO 1.5 K/mm3 (0.0-0.8); MONOCYTES PERCENT AUTO 15.2 % (0.0-8.0); NEUTROPHILS ABSOLUTE AUTO 6.5 K/mm3 (1.8-7.7); PLATELET COUNT,PLT 331 K/mm3 (150-400); RED BLOOD CELL COUNT 4.51 M/mm3 (4.52-5.90); WHITE BLOOD CELL COUNT,WBC 9.92 K/mm3 (3.9-11.3)
[2024-05-08 17:41] LABS: A/G RATIO 1.1 (1-2); ALANINE AMINOTRANSFERASE,ALT 156 U/L (16-63); ALBUMIN 4.3 g/dl (3.4-5.0); ALKALINE PHOSPHATASE 88 U/L (46-116); ANION GAP 23.2 (5-15); ASPARTATE AMNIOTRANSFERASE,AST 130 U/L (15-37); BILIRUBIN TOTAL 2.9 mg/dL (0.2-1.0); BLOOD UREA NITROGEN,BUN 18 mg/dL (7-18); BUN/CREATININE RATIO 9.5 (14-18); CALCIUM 9.9 mg/dL (8.5-10.1); CARBON DIOXIDE,CO2 22 mEq/L (21-32); CHLORIDE,CL 85 mEq/L (98-107); CREATININE 1.9 mg/dL (0.7-1.3); EST CRCL DRUG DOSING (CG) 58.29 mL/min; ESTIMATED GFR 44 mL/min (>60); GLUCOSE RANDOM 95 mg/dL (70-99); MAGNESIUM 1.5 mg/dL (1.8-2.4); POTASSIUM,K 4.2 mEq/L (3.5-5.1); PROTEIN TOTAL,TP 8.1 g/dl (6.4-8.2); SODIUM,NA 126 mEq/L (136-145)
[2024-05-08 17:43] LABS: TROPONIN I HIGH SENSITIVITY < 4 pg/mL (<=76)
[2024-05-08] MEDS: Sodium Chloride 0.9% 1,000 ML IV ONE (18:55)
[2024-05-08] MEDS: Magnesium Sulfate/Water 2 GM in Premix Bag 1 BAG IV ONE (18:56)
[2024-05-08] MEDS: Sucralfate Suspension 1 GM/10 ML Cup PO ONE (21:00)
[2024-05-08] MEDS: Pantoprazole 40 MG Vial IVPUSH ONE (21:01)
[2024-05-08 22:54] VITALS: BP 142/83; PULSE 89
== END 2024-05-08 22:54 | disposition home or self-care (01) ==
LOC: JD.ED 16:22
DX: E86.0 Dehydration (principal); F41.9 Anxiety disorder, unspecified; I10 Essential (primary) hypertension; F17.210 Nicotine dependence, cigarettes, uncomplicated; Z90.49 Acquired absence of other specified parts of digestive tract; Z86.16 Personal history of COVID-19; Z79.899 Other long term (current) drug therapy
CPT/HCPCS: 36415; 80053; 83735; 84484; 85025; 86140; 93005; 96361; 96365; 96366; 96375; 99285; A9270; C9113; J2060; J2405; J3475; J3490; J7030